=== PATIENT | female | born 1990 | race Caucasian/White ===

== ENCOUNTER 2023-10-03 11:48 | Emergency (ER) | payer SELFPAY ==
[2023-10-03 11:55] VITALS: BP 112/59; PULSE 89; TEMP 36.8; O2SAT 98; BMI 43.3
--- NOTE | 2023-10-03 13:04 | ED.GENADUL1 ---
HPI HPI - General Adult General Chief complaint: Dental/Oral Stated complaint: SEIZURE, MOUTH PAIN Time Seen by Provider: 10/03/23 11:52 Source: patient Mode of arrival: walk-in History of Present Illness HPI narrative: 33-year-old female to the emergency department with chief complaint of tongue laceration. Patient reports that 2 weeks ago she had a seizure. She was seen at [facility] for this. She had labs and imaging done. She has been referred to neurology. She has upcoming follow-up with neurology. She reports that she had a tongue laceration at that time and wants to make sure it is healing well. She reports she continues to have some mild discomfort on her tongue. Related Data Home Medications ?Medication ?Instructions ?Recorded ?Confirmed No Known Home Medications 10/03/23 10/03/23 Allergies Allergy/AdvReac Type Severity Reaction Status Date / Time No Known Drug Allergies Allergy Verified 10/03/23 11:54 Opioid HPI Opioid Management Most Recent Opioid Data: No Data to Display Review of Systems ROS Status of ROS 10 or more systems reviewed and unremarkable except as noted in history and below Exam Narrative Exam Narrative: VITALS: I have reviewed the triage vital signs. GENERAL: Well developed, well appearing adult in no acute distress. NEURO: Alert and oriented. Moves all extremities. Face is symmetric and expressive. Normal gait. EYES: PERRL. No scleral icterus or conjunctival injection. No discharge. HENT: Normocephalic, atraumatic. Hearing is grossly intact. Nares grossly patent and without discharge. Mucous membranes moist. Approximately 1.5 cm laceration anterior surface of the right lateral tongue. NECK: No JVD. Patient moves neck without restriction. CARDIO: Rhythm regular. Normal rate. No murmur, rub, or gallop. Pulses equal bilaterally in the upper and lower extremity. No lower extremity edema. PULM: Lungs clear to auscultation in all pandya. No wheezes, rales, or rhonchi. No conversational dyspnea. No splinting, stridor, or accessory muscle use. GI/: Abdomen is soft and non-tender. Normoactive bowel sounds. EXTREMITIES: Symmetric muscle bulk. No joint swelling. No clubbing, cyanosis, or deformity. SKIN: Warm and dry. Normal turgor. No rash or lesions appreciated. PSYCH: Mood, affect, and interaction is appropriate to the setting. Constitutional Vital Signs, click to edit/add: Last Vital Signs Temp 98.3 F 10/03/23 11:55 Pulse 89 10/03/23 11:55 Resp 16 10/03/23 11:55 BP 112/59 10/03/23 11:55 Pulse Ox 98 10/03/23 11:55 O2 Del Method Room Air 10/03/23 11:55 Course Vital Signs Vital signs: Vital Signs Temperature 98.3 F 10/03/23 11:55 Pulse Rate 89 10/03/23 11:55 Respiratory Rate 16 10/03/23 11:55 Blood Pressure 112/59 10/03/23 11:55 Pulse Oximetry 98 10/03/23 11:55 Oxygen Delivery Method Room Air 10/03/23 11:55 Temperature 98.3 F 10/03/23 11:55 Pulse Rate 89 10/03/23 11:55 Respiratory Rate 16 10/03/23 11:55 Blood Pressure 112/59 10/03/23 11:55 Pulse Oximetry 98 10/03/23 11:55 Oxygen Delivery Method Room Air 10/03/23 11:55 Medical Decision Making MDM Narrative Medical decision making narrative: 33-year-old female to the emergency department chief complaint of tongue laceration that occurred over a week ago. Vital stable, the patient is afebrile. She has ongoing outpatient workup for seizures. Tongue laceration is healing well. No evidence of infection or complication. No indication for intervention. Discussed with patient. She has follow-up with neurology. Discussed seizure precautions. Return precautions were discussed. All questions were answered. The patient was discharged home. Discharge Plan Discharge Stand Alone Forms: Portal Instructions Chief Complaint: Dental/Oral Clinical Impression: Laceration of tongue Patient Disposition: Home, Self-Care Time of Disposition Decision: 12:12 Mode of Transportation: Private Vehicle Prescriptions / Home Meds: No Action No Known Home Medications Print Language: Irish Instructions: Laceration Without Closure (ED) Additional Instructions: Call the office of your primary care doctor to arrange for follow-up within the above-stated timeframe. Your ED visit was focused on your acute issue and does not replace primary care. You should review your labs, imaging, and diagnoses from this ED visit with your primary care physician. There may be non-emergent/ incidental findings that need further evaluation. You should review your vital signs including blood pressure with your PCP. If you were prescribed medications you should discuss possible side-effects and drug interactions with your pharmacist. Call 911 or go to the nearest Emergency Department if you develop any new or worsening symptoms. Seek immediate medical attention if you develop: additional seizures, fever, headache, nausea, vomiting, weakness, numbness, tingling, loss of motion in your arms or legs, chest pain, shortness of breath, or any new or worsening symptoms. Do not do any activities where it would be dangerous if you had a seizure. These activities include, but are not limited to: driving, operating machinery, swimming alone, bathing alone, riding a bike, rock climbing, etc.... Use caution when you are around stairs or other situations where it would be dangerous if you had a seizure. You are responsible for reporting your seizure to the [facility]. You should not drive a vehicle until cleared to do so by your doctor or your neurologist. Losing consciousness behind the wheel can be deadly for you and other people on the road. Keep planned follow-up with neurology per [facility]'s discharge instructions. Referrals: HUI VALLE [Physician] - 1 week Discharge Date/Time: 10/03/23 12:28
== END 2023-10-03 12:28 | disposition home or self-care (01) ==
LOC: ER 12:28
PROVIDERS: Emergency Provider Student in an Organized Health Care Education/Training Program
DX: S01.512A Laceration without foreign body of oral cavity, initial encounter (principal); X58.XXXA Exposure to other specified factors, initial encounter
CPT/HCPCS: 99281

== ENCOUNTER 2023-12-25 17:43 | Emergency (ER) | payer OTHER, SELFPAY ==
[2023-12-25 17:47] VITALS: BP 126/74; PULSE 70; TEMP 36.8; O2SAT 98; BMI 43.3
--- NOTE | 2023-12-25 18:13 | ED.URI1 ---
HPI - URI/Sore Throat General Chief Complaint: Upper Respiratory Infection Stated Complaint: FLU LIKE SYMPTOMS Time Seen by Provider: 12/25/23 17:49 Source: patient History of Present Illness HPI Narrative: 33-year-old female presents emergency department with complaint of feeling over the past few days. Complains of feeling hot, cold, generalized bodyaches. She has had runny, congested nose, postnasal drip. States she has had chills, but does not know if she has had a fever, has not checked her temperature. Quality:?As above Severity:?Mild Timing:?As above, constant Context: Normal setting and activity? Modifying factors:?None Associated symptoms: None Related Data Home Medications ?Medication ?Instructions ?Recorded ?Confirmed aripiprazole 400 mg suspension, 400 mg IM .[id number] 12/25/23 12/25/23 extended rel.intramuscular syringe (Nicolásbrianda Ewelinaa) Allergies Allergy/AdvReac Type Severity Reaction Status Date / Time No Known Drug Allergies Allergy Verified 10/03/23 11:54 Review of Systems ROS Narrative Constitutional: + chills, fatigue. HENT: + nasal congestion. Denies ear pain, sore throat, diff swallowing, voice change Eyes: Denies discharge, eye redness Respiratory: Denies cough, shortness of breath Cardiovascular: Denies chest pain, palpitations MS: + myalgias PFSH PFSH Social History Little interest or pleasure in doing things: not at all Feeling down, depressed, or hopeless: not at all Exam Narrative Exam Narrative: Vital signs noted Nurses notes reviewed CONST:? Nontoxic, well appearing, well nourished, in no distress.? HENT: normocephalic, atraumatic.? Normal hearing.? Normal appearing ext ears, canals, TM's.? No nasal discharge.? Moist mucous membranes, no increased oropharyngeal erythema, edema, exudate.? No trismus, maintaining own secretions. EYES: No injection, discharge NECK: supple, no lymphadenopathy CV: normal rate, regular rhythm, no murmur RESP: normal effort, speaking in complete sentences. Lung sounds clear and equal bilat.? No wheezes, rales, rhonchi? NEURO: A&Ox3, steady gait, normal station SKIN: intact, warm, dry, no pallor PSYCHIATRIC: normal mood, affect Constitutional Vital Signs, click to edit/add: Last Vital Signs Temp 98.2 F 12/25/23 17:47 Pulse 70 12/25/23 17:47 Resp 20 12/25/23 17:47 BP 126/74 12/25/23 17:47 Pulse Ox 98 12/25/23 17:47 O2 Del Method Room Air 12/25/23 17:47 Course Vital Signs Vital signs: Vital Signs Temperature 98.2 F 12/25/23 17:47 Pulse Rate 70 12/25/23 17:47 Respiratory Rate 20 12/25/23 17:47 Blood Pressure 126/74 12/25/23 17:47 Pulse Oximetry 98 12/25/23 17:47 Oxygen Delivery Method Room Air 12/25/23 17:47 Temperature 98.2 F 12/25/23 17:47 Pulse Rate 70 12/25/23 17:47 Respiratory Rate 20 12/25/23 17:47 Blood Pressure 126/74 12/25/23 17:47 Pulse Oximetry 98 12/25/23 17:47 Oxygen Delivery Method Room Air 12/25/23 17:47 MDM - URI/Sore Throat MDM Narrative Medical decision making narrative: This is a pleasant 33-year-old female who presents to the emergency department with complaints of not feeling well, body aches, possible fevers, chills, cough runny nose, congestion over the past couple days. On arrival, afebrile, vital signs are stable. Exam, nontoxic, well-appearing patient in no distress. No remarkable findings on HEENT exam. No lymphadenopathy. Heart regular rate and rhythm. Lung sounds clear and equal bilaterally. COVID, influenza screens were negative Urinalysis revealed no acute findings test was negative Favor influenza-like illness Pneumonia less likely based on patient being afebrile, having clear lung sounds, not hypoxic COVID, influenza less likely based on lab testing She was offered a shot of Toradol, declined, states that she will treat self at home. Disposition ? The patient was discharged. Plan: Patient will be discharged to home. Condition at time of disposition: stable She was advised [id number], supportive treatment Advised to follow up with primary provider. Advised to return for any worsening and/or development of new, concerning signs or symptoms PLEASE NOTE: Portions of the medical record may have been produced using electronic bomb squad commander and may contain errors with respect to translation of words which may not have been identified prior to finalization of the chart. Medical Records Attestation: I reviewed the patient's medical records. Lab Data Attestation: I reviewed the patient's lab results. Labs: Lab Results 12/25/23 12/25/23 Range/Units 17:52 18:15 Urine Color Yellow (YELLOW) Urine Clarity Clear (CLEAR) Urine pH 6.5 (5.0-9.0) Ur Specific [place] 1.020 (1.005-1.025) Urine Protein Negative (NEG/TRACE) mg/dL Urine Glucose (UA) Negative (NEGATIVE) mg/dL Urine Ketones Negative (NEGATIVE) mg/dL Urine Occult Blood Moderate A (NEGATIVE) Urine Nitrite Negative (NEGATIVE) Urine Bilirubin Negative (NEGATIVE) Urine Urobilinogen 1.0 (0.2-1.0) EU/dL Ur Leukocyte Esterase Negative (NEGATIVE) Urine RBC 10-20 A (0-2) #/HPF Urine WBC None seen (NONE SEEN) #/HPF Ur Squamous Epith Cells Few A (NONE/RARE) #/LPF Urine Crystals None seen (None Seen) #/HPF Urine Bacteria Trace A (NONE SEEN) #/HPF Urine Casts None seen (NONE SEEN) #/LPF Urine Mucus Small A (NONE SEEN) Urine HCG, Qual Negative (NEGATIVE) Influenza Type A Ag Negative Influenza Type B Ag Negative SARS-CoV-2 Ag (CV2AG) Negative (NEGATIVE) Discharge Plan Discharge Chief Complaint: Upper Respiratory Infection Clinical Impression: Influenza-like illness, Odontalgia Patient Disposition: Home, Self-Care Time of Disposition Decision: 19:28 Condition: Good Mode of Transportation: Private Vehicle Prescriptions / Home Meds: No Action Abilify Maintena 400 mg suspension,extended rel syring 400 mg IM .[id number] Print Language: Northern Irish Instructions: Upper Respiratory Infection (ED), Toothache (ED) Referrals: Harris Wilson MD [Physician] - 1 week Physician,Non-Staff, [Primary Care Provider] - 1 week Discharge Date/Time: 12/25/23 19:44
[2023-12-25 18:29] LABS: Influenza Virus A Antigen Negative; Influenza Virus B Antigen Negative; Internal Control Within Normal Limits; SARS-CoV-2 Ag NEGATIVE (NEGATIVE)
[2023-12-25 19:12] LABS: Bilirubin Urine NEGATIVE (NEGATIVE); Blood Urine MODERATE (NEGATIVE); Clarity Urine CLEAR (CLEAR); Color Urine YELLOW (YELLOW); Glucose Urine UA NEGATIVE (NEGATIVE); Ketones Urine NEGATIVE (NEGATIVE); Leukocyte Esterase Urine NEGATIVE (NEGATIVE); Nitrite Urine NEGATIVE (NEGATIVE); Protein Urine NEGATIVE (NEG/TRACE); pH Urine 6.5 (5.0-9.0)
[2023-12-25 19:18] LABS: HCG Qualitative Urine* NEGATIVE (NEGATIVE); Internal Control Within Normal Limits
[2023-12-25 20:08] LABS: Cast Seen? NONE SEEN #/LPF (NONE SEEN); Crystals Seen? None Seen #/HPF (None Seen); Mucus Urine SMALL (NONE SEEN); Squamous Epithelial Cell Urine FEW #/LPF (NONE/RARE)
[2023-12-25 20:09] LABS: Bacteria Urine TRACE #/HPF (NONE SEEN); WBC Urine NONE SEEN #/HPF (NONE SEEN)
== END 2023-12-25 19:44 | disposition home or self-care (01) ==
PROVIDERS: Physician Assistant; Emergency Provider Emergency Medicine
DX: J11.1 Influenza due to unidentified influenza virus with other respiratory manifestations (principal); K08.89 Other specified disorders of teeth and supporting structures; Z20.822 Contact with and (suspected) exposure to COVID-19
CPT/HCPCS: 81001; 84703; 87804; 87811; 99285

== ENCOUNTER 2024-06-09 12:24 | Emergency (ER) | payer OTHER, SELFPAY ==
[2024-06-09 12:27] VITALS: BP 107/65; PULSE 78; TEMP 36.8; O2SAT 100; BMI 46.8
--- NOTE | 2024-06-09 12:54 | ED_ITS ---
HPI HPI - General Adult General Chief complaint: Extremity Injury, Lower Stated complaint: FALL Time Seen by Provider: 06/09/24 12:32 Source: patient Mode of arrival: walk-in Limitations: no limitations History of Present Illness HPI narrative: The patient mentioned that yesterday she tripped over a hole in the ground and twisted her right knee and started having pain in her right hip and groin area, the patient still able to walk with pain. She had no loss of consciousness no head injury no other concerns Related Data Home Medications ?Medication ?Instructions ?Recorded ?Confirmed aripiprazole 400 mg suspension, 400 mg IM .[id number] 12/25/23 12/25/23 extended rel.intramuscular syringe (Omid Ch) Previous Rx's ?Medication ?Instructions ?Recorded diclofenac sodium 75 mg 75 mg PO BID PRN pain #20 tabs 06/09/24 tablet,delayed release Allergies Allergy/AdvReac Type Severity Reaction Status Date / Time No Known Drug Allergies Allergy Verified 06/09/24 12:27 Opioid HPI Opioid Management Most Recent Opioid Data: No Data to Display Review of Systems ROS Status of ROS 10 or more systems reviewed and unremark able except as noted in history and below PFSH PFS Social History Little interest or pleasure in doing things: not at all Feeling down, depressed, or hopeless: not at all Exam Narrative Exam Narrative: Nurses notes and vital signs reviewed and patient is not hypoxic. General: Well-appearing and in no apparent distress. Skin: Warm, dry, no pallor noted. No rash. Musculoskeletal: normal ROM, no calf or popliteal tenderness, no lower extremity edema/swelling ,the patient have tenderness upon palpation of the right patellar area no ecchymosis seen no significant effusion and also tenderness in the right groin area Neurological: A&O x4. No cranial nerve dysfunction observed. Moves all extremities. Sensation intact. Psychiatric: Cooperative and interactive. Normal mood and affect. Constitutional Vital Signs, click to edit/add: Last Vital Signs Temp 98.2 F 06/09/24 12:27 Pulse 78 06/09/24 12:27 Resp 20 06/09/24 12:27 BP 107/65 06/09/24 12:27 Pulse Ox 100 06/09/24 12:27 O2 Del Method Room Air 06/09/24 12:27 Course Vital Signs Vital signs: Vital Signs Temperature 98.2 F 06/09/24 12:27 Pulse Rate 78 06/09/24 12:27 Respiratory Rate 20 06/09/24 12:27 Blood Pressure 107/65 06/09/24 12:27 Pulse Oximetry 100 06/09/24 12:27 Oxygen Delivery Method Room Air 06/09/24 12:27 Temperature 98.2 F 06/09/24 12:27 Pulse Rate 78 06/09/24 12:27 Respiratory Rate 20 06/09/24 12:27 Blood Pressure 107/65 06/09/24 12:27 Pulse Oximetry 100 06/09/24 12:27 Oxygen Delivery Method Room Air 06/09/24 12:27 Medical Decision Making MDM Narrative Medical decision making narrative: X-ray of the right knee as well as x-ray of the right hip showed no acute pathology Right now the patient had a knee immobilizer applied in addition to resting elevation and provided Toradol in the ER She will just continue ice treatment in addition to being referred to the orthopedic as outpatient Voltaren to go home with The patient is to follow up with primary care physician in next 2-3 days or to return to the emergency department should any of the signs or symptoms worsen or new symptoms develop. The patient agrees with the following Diagnosis and Treatment plan and the patient will be discharged home. Discharge Plan Discharge Chief Complaint: Extremity Injury, Lower Clinical Impression: Knee sprain, Hip sprain Patient Disposition: Home, Self-Care Time of Disposition Decision: 13:50 Condition: Good Prescriptions / Home Meds: New diclofenac sodium 75 mg tablet,delayed release (DR/EC) 75 mg PO BID PRN (Reason: pain) Qty: 20 0RF No Action Abilify Maintena 400 mg suspension,extended rel syring 400 mg IM .[id number] Print Language: Kyrgyz Instructions: Knee Sprain (ED), Hip Sprain (ED) Referrals: Physician,Non-Staff, [Primary Care Provider] - 1 week Zackary Reilly MD [Physician] - 1 week
[2024-06-09] MEDS: KETOROLAC TROMETHAMINE 60 MG/2 ML VIAL IM (13:33)
== END 2024-06-09 14:07 | disposition home or self-care (01) ==
PROVIDERS: Emergency Provider Emergency Medicine
DX: S73.101A Unspecified sprain of right hip, initial encounter (principal); S83.91XA Sprain of unspecified site of right knee, initial encounter; X50.1XXA Overexertion from prolonged static or awkward postures, initial encounter
CPT/HCPCS: 73502; 73562; 96372; 99284; J1885

== ENCOUNTER 2024-08-31 15:35 | Outpatient (OUT) | payer OTHER, SELFPAY ==
[2024-08-31 16:01] LABS: BOX Test Reference Lab unity; BOX Test Sent Out unity
[2024-08-31 16:07] LABS: Basophils Percent Auto 0.6 % (0.2-2.0); Eosinophils Absolute Auto 0.1 10^3/uL (0.0-0.7); Hematocrit 37.3 % (36.0-48.0); Hemoglobin 13.5 g/dL (12.0-16.0); Immature Granulocytes Abs Auto 0.02 10^3/uL (0.00-0.03); Immature Granulocytes Pct Auto 0.3 % (0.0-0.5); Lymphocytes Percent Auto 27.5 % (20.5-60.0); Mean Corpuscular HGB Conc 36.2 g/dL (29.9-35.2); Mean Corpuscular Hemoglobin 31.1 pg (26.7-34.0); Mean Corpuscular Volume 85.9 fL (81.0-99.0); Mean Platelet Volume 9.1 fL (9.5-13.5); Monocytes Absolute Auto 0.5 10^3/uL (0.3-0.8); Monocytes Percent Auto 6.9 % (1.7-12.0); Neutrophils Absolute Auto 4.5 10^3/uL (1.4-6.5); Neutrophils Percent Auto 62.7 % (43.0-75.0); Platelet Count 245 10^3/uL (150-450); Red Blood Count 4.34 10^6/uL (4.20-5.40); White Blood Count 7.1 10^3/uL (4.0-11.0)
[2024-08-31 17:01] LABS: Estimated Average Glucose 97 mg/dL
[2024-08-31 17:07] LABS: Amphetamine Screen Urine NEGATIVE (NEGATIVE); Barbiturates Screen Urine NEGATIVE (NEGATIVE); Benzodiazepines Screen Urine NEGATIVE (NEGATIVE); Buprenorphine Screen Urine POSITIVE (NEGATIVE); Cannabinoid Screen Urine POSITIVE (NEGATIVE); Cocaine Screen Urine POSITIVE (NEGATIVE); Methadone Screen Urine NEGATIVE (NEGATIVE); Methamphetamines Screen Urine NEGATIVE (NEGATIVE); Opiate Screen Urine NEGATIVE (NEGATIVE); Oxycodone Screen Urine NEGATIVE (NEGATIVE); Phencyclidine Screen Urine NEGATIVE (NEGATIVE); Tricyclic Antidepressant Urine NEGATIVE (NEGATIVE)
[2024-09-02 05:09] LABS: HIV Ab/p24 Ag Screen Non Reactive (Non Reactive)
[2024-09-02 06:09] LABS: HBsAg Screen Negative (Negative); HCV Ab Non Reactive (Non Reactive)
[2024-09-02 08:08] LABS: Rubella Antibodies, IgG 3.14 index (Immune >0.99)
[2024-09-02 13:10] LABS: Rapid Plasma Reagin, Quant Non Reactive titer (NonRea<1:1)
== END 2024-08-31 15:36 | disposition home or self-care (01) ==
PROVIDERS: PCP Nurse Practitioner; Visit Provider Obstetrics & Gynecology
DX: Z34.01 Encounter for supervision of normal first pregnancy, first trimester (principal); Z36.0 Encounter for antenatal screening for chromosomal anomalies; N92.6 Irregular menstruation, unspecified
CPT/HCPCS: 36415; 80299; 80307; 80349; 80353; 83036; 85025; 86592; 86762; 86803; 86850; 86900; 86901; 87086; 87340; 87389

== ENCOUNTER 2024-09-29 19:39 | Outpatient (REF) | payer OTHER, SELFPAY ==
--- OUTSIDE RECORDS SUMMARY | 2017-11-08 06:00 | XMS_ITS | Continuity of Care Document ---
Author Organization [employer] [facility] Address [address] [place] [address] Phone Care Team Providers Care Press Hand Name Role Phone Ramon Brasher MD Unavailable Unavailable Procedures Procedure Date OUTPATIENT CONSULTATION Advance Directives Directive Yes / No Effective Date File Name No Information Encounters Encounter Description Practice Location Reason(s) For Visit Diagnoses Date Provider Providers Copied on Encounter OUTPATIENT CONSULTATION [employer] [employer] [facility], [address], [place], [place], [id number], [place] tel:[phone] [facility] No Information Sameera Navarro. [address] [place] [address] [address], [place], [id number], [place]. tel:[phone] Referring Provider: Ramon Arreaga, [address] [place] [address] [address], [place], [address]. tel:[phone] Family History Family Member Type Diagnosis Age At Onset No Information Payers Payer name Insurance type Covered green party ID Authoriza fanny(s) On License Of [facility] CI [id number] Social History Type Description Quantity Date Captured Comments Sex Female Smoking Status No Information Chief Complaint And Reason For Visit No Information Reason For Referral Reason For Referral No Information History Of Present Illness Encounter Date Complaint History Of Prese nt Illness No Information Functional Status Date Functional Assessmen t No Information Instructions Date Instruction Additional Infor mation No Information Assessments Type Assessment Date No Information Patient Care Teams Name Effective Dates (start - stop) Status Members No Information
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
--- OUTSIDE RECORDS SUMMARY | 2024-01-14 10:30 | XMS_ITS ---
Author Organization [facility] vices Address [address] [place], [place] [id number] Care Team Providers Care Records Analysis Manager Name Role Phone Eunice Crooks Unavailable [phone] BalaDanette valverde Unavailable [phone] REASON FOR VISIT 1 month f/u Medications Medication SIG (Take, Route, Frequency, Duration) Notes Start Date End Date Status lamoTRIgine 25 MG 1 tablet Orally morning for 30 days Take 1 tab in AM days 1-14. Take 2 tabs in AM days 15-30 12/11/2023 Active Fluconazole 150 MG 1 tablet Orally Taken now. Then take a second tablet in 72 hours if sx have not resolved for 3 days 07/12/2022 Not-Taking levETIRAcetam 500 MG Oral for 30 Days Active Atomoxetine HCl 40 MG TAKE 1 CAPSULE BY MOUTH EVERY DAY IN THE MORNING for 30 Not-Taking Amoxicillin 875 MG 1 tablet Orally Twice a day for 10 days 07/12/2022 Not-Taking Prazosin HCl 2 MG 1 capsule at bedtime Orally bed time for 30 days Active hydrOXYzine Pamoate 50 MG 1 capsule at bedtime as needed Orally Once a day for 30 days As needed Active traZODone HCl 50 MG 1 tablet at bedtime as needed Orally Once a day for 30 days Active lamoTRIgine 100 MG 1 tablet Orally morning for 30 days Not-Taking ARIPiprazole 15 MG 1 tablet Orally BEDTIME for 14 days Active busPIRone HCl 15 MG 1 tablet Orally Twice a day for 30 days Take 1 tab upon awakening and 1 tab at 5-6 PM. Active Sertraline HCl 50 MG 1 tablet Orally morning for 30 days Active Aristada 1064 MG/3.9ML 3.9 mL Intramuscular Every 2 months for 60 days Next RODRIGUEZ due 02/04/24. Please deliver [facility] [address] [facility] [id number]. 08/06/2022 Active Social History Sex Assigned At : Social History Observation Description Sex Assigned At Female Encounters Encounter Location Date Provider Diagnosis [address] [place] [id number] 01/14/2024 Danette Arteaga Anxiety F41.9 ; Bipo lar 1 disorder F31.9 and Insomnia G47.00 Assessments Encounter Date Diagnosis (ICD Code) Assessment Notes Treatment Notes Treatment Clinical Notes Section Notes 01/14/2024 Anxiety (ICD-10 - F41.9) 01/14/2024 Bipolar 1 disorder (ICD-10 - F31.9) Restarted medications 09/19/21, 04/04/22. 12/16. 01/14/2024 Insomnia (ICD-10 - G47.00) Plan Of Treatment No Information Progress Notes * Alicia BARNES NDOB:08/1990 (34 yo F)Acc No.[id number]:01/14/2024 Patient: Claudia Alicia MARTÍNEZ N Provider: STORMY Womack :1990 A ge:33 Y S ex:Female Date:01/14/2024 Address:[address] [place] [address] , [id number] Subjective: * Chief Complaints: * 1 . 1 month f/u. * Medical History: * Medications: T aking Aristada 1064 MG/3.9ML Prefilled Syringe 3.9 mL Intramuscular Every 2 months , Notes to Pharmacist: Next RODRIGUEZ due 02/04/24. Please deliver to [facility] main [address] [place] [address]., Taking busPIRone HCl 15 MG Tablet 1 tablet Orally Twice a day , Notes to Pharmacist: Take 1 tab upon awakening and 1 tab at 5-6 PM., Taking Sertraline HCl 50 MG Tablet 1 tablet Orally morning , Taking Prazosin HCl 2 MG Capsule 1 capsule at bedtime Orally bed time , Taking traZODone HCl 50 MG Tablet 1 tablet at bedtime as needed Orally Once a day , Taking hydrOXYzine Pamoate 50 MG Capsule 1 capsule at bedtime as needed Orally Once a day As needed, Taking ARIPiprazole 15 MG Tablet 1 tablet Orally BEDTIME , Notes: 1/2 tab for 4 days then increase to full tab, Taking levETIRAcetam 500 MG Tablet Oral , Taking lamoTRIgine 25 MG Tablet 1 tablet Orally morning Take 1 tab in AM days 1-14. Take 2 tabs in AM days 15-30, Not-Taking/PRN lamoTRIgine 100 MG Tablet 1 tablet Orally morning , Not-Taking/PRN Atomoxetine HCl 40 MG Capsule TAKE 1 CAPSULE BY MOUTH EVERY DAY IN THE MORNING , Not-Taking/PRN Amoxicillin 875 MG Tablet 1 tablet Orally Twice a day , Not-Taking/PRN Fluconazole 150 MG Tablet 1 tablet Orally Taken now. Then take a second tablet in 72 hours if sx have not resolved Objective: * Vitals: Assessment: * Assessment: 1. A nxiety - F41.9 (Primary) 2 . B ipolar 1 disorder - F31.9 ?Notes :Restarted medications 09/19/21, 04/04/22. /. 3 . I nsomnia - G47.00 Plan: * Treatment: Care Plan: * Problems: * Billing Information: * Visit Code: * Procedure Codes: Care Plan Details* * Electronic signature of LAYNE Gaspar on 09/29/2024 at 10:29 AM EDT Sign off status: Pending * Provider: LAYNE Womack Date: Generated for Efe beckford/Rosy/Pj on: 0 09/29/2024 10:29 AM EDT
--- OUTSIDE RECORDS SUMMARY | 2024-09-29 10:30 | XMS_ITS | Encounter Summary ---
Author Organization [facility] Address [address] [place] [address] Care Team Providers Care Supervisor [employer] Name Role Phone Unavailable Primary Care Provider Unavailabl e Reason for Visit * Reason Comments Routine Visit Encounter Details Date Type Department Care Team (Latest Contact Info) Description 09/29/2024 10:30 AM EDT Routine [facility] [address] [place] [phone] Samantha Lira PA [address] [place] [address] Well woman exam with routine gynecological exam; Second trimester ([facility]); 13 weeks gestation of ([facility]); Screen for STD (sexually transmitted disease); [place]x [place] Social History Tobacco Use Types Packs/Day Years Used Date Smoking Tobacco: Never Assessed Estimated Date of Delivery Comme nts Yes 04/04/2025 Based on Ultraso und, [id number] Sex and Gender Information Value Date Recorded Sex Assigned at Female 11/27/2023 2:19 PM EDT Legal Sex Female 7:05 PM EDT Gender Identity Female 11/27/2023 2:19 PM EDT Sexual Orientation Not on file documented as of this encounter Last Filed Vital Signs Vital Sign Reading Time Taken Comments Blood Pressure 122/76 09/29/2024 11:20 AM EDT Pulse - - Temperature - - Respiratory Rate - - Oxygen Saturation - - Inhaled Oxygen Concentration - - Weight 129 kg (284 lb) 09/29/2024 11:20 AM EDT Height - - Body Mass Index 46.54 05/09/2018 12:00 PM EST documented in this encounter Progress Notes * GINNY Nicholas - 09/29/2024 10:30 AM EDT Reason for Appointment: Patient ID: Alicia Barnes is a 34 y.o. female who presents for Routine Visit Patient presents today for Return OB appointment. MEDICATIONS Current Outpatient Medications Medication Instructions ARIPiprazole (Abilify) 15 MG tablet 1 tablet Orally BEDTIME for 14 days ARIPiprazole (Abilify) 5 MG tablet TAKE 2 TABLETS BY MOUTH EVERY DAY IN THE EVENING Aristada 1064 MG/3.9ML injection INJECT INTRAMUSCULARLY EVERY TWO MONTHS atomoxetine (STRATTERA) 40 mg, Oral, Daily Brixadi 96 mg, Every 30 days MV-Min-Fe Fum-FA-DHA ( 1 PO) 1 tablet, Daily promethazine (PHENERGAN) 12.5 mg, Oral, Every 6 hours PRN, Take 1 tablet by mouth every 6 hours as needed for nausea. 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 Bilateral carpal tunnel syndrome 11/27/2023 Resolved Ambulatory Problems Diagnosis Date Noted No Resolved Ambulatory Problems Past Medical History: Diagnosis Date Anxiety Bipolar 1 disorder (HCC) Bleeding disorder Depression Fibromyalgia History of Raynaud's syndrome Neurocardiogenic syncope HISTORY PAST MEDICAL HISTORY SOCIAL HISTORY Past Medical History: Diagnosis Date Anxiety Bipolar 1 disorder (HCC) Bleeding disorder Depression Fibromyalgia History of Raynaud's syndrome Neurocardiogenic syncope Social History Tobacco Use Smoking status: Not on file Smokeless tobacco: Not on file Substance Use Topics Alcohol use: Not on file Drug use: Not on file FAMILY HISTORY Family History Problem Relation Name Age of Onset Heart disease Mother Mental illness Mother Osteoporosis Mother Diabetes Brother Hypertension Brother Heart disease Mother's Sister Heart disease Maternal Grandmother SURGICAL HISTORY Past Surgical History: Procedure Laterality Date GALLBLADDER UMBILICAL HERNIA REPAIR mesh REVIEW OF SYSTEMS Review of Systems: Review of Systems All other systems reviewed and are negative. OBJECTIVE Objective: Physical Exam Constitutional: Appearance: Normal appearance. She is well-developed. Genitourinary: Vulva normal. Cardiovascular: Rate and Rhythm: Normal rate and regular rhythm. Pulmonary: Effort: Pulmonary effort is normal. Breath sounds: Normal breath sounds. Abdominal: General: Bowel sounds are normal. There is no distension. Palpations: Abdomen is soft. Tenderness: There is no abdominal tenderness. There is no guarding or rebound. Musculoskeletal: General: No swelling. Normal range of motion. Right lower leg: No edema. Left lower leg: No edema. Neurological: Mental Status: She is alert and oriented to person, place, and time. Skin: General: Skin is warm and dry. Psychiatric: Mood and Affect: Mood normal. Behavior: Behavior normal. Vitals and nursing note reviewed. Exam conducted with a sales mgr present. Vitals: Estimated body mass index is 46.18 kg/m?? as calculated from the following: Height as of 05/09/18: 5' 5.5 . Weight as of 08/31/24: 281 lb 12.8 oz. BP: No LMP recorded. Patient is . ASSESSMENT & PLAN ICD-10-CM 1. Well woman exam with routine gynecological exam Z01.419 Pap Smear HPV DNA probe, amplified 2. Second trimester ([facility]) Z34.92 POCT urinalysis dipstick manually resulted 3. 13 weeks gestation of ([facility]) Z3A.13 4. Screen for STD (sexually transmitted disease) Z11.3 SURESWAB(R) ADVANCED VAGINITIS PLUS, TMA CHLAMYDIA TRACHOMATIS (GENITO/STI) Neisseria gonorrhea DNA probe, direct 5. Hx of opioid abuse [place] F11.11 Return OB/Annual Exam: Patient presents today for an annual exam/routine obstetrics appointment. Patient is currently 13w2d . Patient is doing well and states she has no complaints. Pap/cultures was obtained without difficulty. Patient was advised due to her history of being an opioid abuser she will be referred to [facility]. PVU. Referral will be sent and pt is aware that [facility] will be contacting her over the phone toschedule OB visit. PVU. Pt stated she is no longer on the Brixadi injection since last month however, is having nausea and vomiting due to withdrawals. Pt states Shammo from [facility] is aware of her no longer needing injections due to . Orders Placed This Encounter Procedures HPV DNA probe, amplified CHLAMYDIA TRACHOMATIS (GENITO/STI) Neisseria gonorrhea DNA probe, direct POCT urinalysis dipstick manually resulted Follow Up: Patient is to return to our office in 4 weeks for routine OB appointment Documented by Katie Loo MA on behalf of: Jyoti Nicholas documented in this encounter Plan of Treatment Upcoming Encounters Date Type Department Care Team (Late st Contact Info) Description 10/28/2024 2:20 PM EDT Routine [facility] [address] [address] Savage Valdez, DO [address] [place] [address] Scheduled Orders Name Type Priority Associated Diagnoses Orde r Schedule Pap Smear Pathology and Cytology Routine Well woman exam with routine gynecological exam Ordered: 09/29/2024 HPV DNA probe, amplified Microbiology Routine Well woman exam with routine gynecological exam Ordered: 09/29/2024 SURESWAB(R) ADVANCED VAGINITIS PLUS, TMA Pathology and Cytology Routine Screen for STD (sexually transmitted disease) Ordered: 09/29/2024 CHLAMYDIA TRACHOMATIS (GENITO/STI) Lab Routine Screen for STD (sexually transmitted disease) Ordered: 09/29/2024 Neisseria gonorrhea DNA probe, direct Lab Routine Screen for STD (sexually transmitted disease) Ordered: 09/29/2024 documented as of this encounter Procedures Procedure Name Priority Date/Time Associated Diagnosis Comments POCT URINALYSIS DIPSTICK Routine 09/29/2024 11:11 AM EDT Second trimester ([facility]) documented in this encounter Results * (ABNORMAL) POCT urinalysis dipstick manually resulted (09/29/2024 11:11 AM EDT) Color, UA Yellow Clarity, UA Clear Glucose, UA Negative Negative - 2000(110) ++++ mg/dL Bilirubin, UA Negative Negative - 4(70) +++ mg/dL Ketones, UA Negative Negative - 160(16) ++++ mg/dL Spec Grav, UA 1.015 1 - 1.03 Blood, UA Positive Negative - 50 Oni/mcL Comment:moderate pH, UA 7.0 5 - 9 Protein, UA Positive Negative - 2000(20) ++++ mg/dL Comment:30 Urobilinogen, UA 0.2 0.2 - 12 mg/dL Leukocytes, UA Negative Negative - 500+++ Ken[place]/mcL Nitrite, UA Negative Negative - Positive Urine 09/29/2024 11:1 1 AM EDT Samantha GROSS POINT OF CARE TEST ENTER/EDIT OR DERABLES Final Result documented in this encounter Visit Diagnoses Diagnosis Well woman exam with routine gynecological exam Routine gynecological examination Second trimester ([facility]) state, incidental 13 weeks gestation of ([facility]) Screen for STD (sexually transmitted disease) Screening examination for venereal disease Hx of opioid abuse [place] documented in this encounter
--- OUTSIDE RECORDS SUMMARY | 2024-09-29 19:42 | XMS_ITS | Encounter Summary ---
Author Organization [facility] Address [address] [place] [address] Care Team Providers Care Food And Beverage Assistant Name Role Phone Unavailable Primary Care Provider Unavailabl e Encounter Details Date Type Department Care Team (Late st Contact Info) Description 09/16/2024 Telephone [facility] [address] [place] [id number] Katie Loo MA [address] [place] [address] Social History Tobacco Use Types Packs/Day Years [...] on file documented as of this encounter Miscellaneous Notes * Telephone Encounter - Katie Loo MA - 09/16/2024 4:19 PM EDT Pt called and wanted to know what Dr. Valdez is going to do about her being on Brixadil due to misusing opiates. Pt is currently and she is worried what it will do to her baby and what it is going to do to her w/withdraws. Pt states she was supposed to have gotten her injection on 09/13/2024 and did not go and she is feeling nauseas. I advised pt Dr. Valdez does not prescribe that medication. Pt states she missed her last appt [email or web address] for her injection. I advised pt that Dr. Valdez wants her to go back to the office who prescribes the injection and they will have to advise you if you have to continue w/medication and at what dosage because he not over Drug/Detox. Pt stated she is going to try and reach out to [facility] again to schedule an appt. I advised pt if I have any other information I will reach out. I tried to call patient back to notify her that the nurse she spoke w/at intake tried to reach out to Ezio Clark and left message to call our office back. I wanted to let patient know I did make contact w/Ezio Clark who is over Detox outpatient treatment and that he will be taking over her care. However, pt does not have VM set up and could not leave a message. Ezio Clark did call our office and I spoke w/him. He advised me that he is taking over her care/treatment and that he will be having her in an outpatient/partial hospital stay in [facility]. Ezio is taking over getting patients Brixadil injections on a weekly basis w/a dosage of 25 mg. Mary Annfern s tated he has already spoke w/the patient and has her set up for her stay at the facility. Our fax number was given to Ezio so he can fax our office his office notes to keep Dr. Valdez in the loop. documented in this encounter Plan of Treatment Upcoming Encounters Date Type Department Care Team (Late st Contact Info) Description 10/28/2024 2:20 PM EDT Routine [facility] [address] [place] [phone] Savage Valdez, DO [address] [place] [address] documented as of this encounter Visit Diagnoses Not on filedocumented in this encounter
--- OUTSIDE RECORDS SUMMARY | 2024-09-29 19:42 | XMS_ITS | Clinical Summary ---
Author Organization [facility] Address [address] [place] [address] Care Team Providers Care Sock Drier Name Role Phone Unavailable Primary Care Provider Unavailabl e Allergies Active Allergy Reactions Criticality Noted Date Comments Amoxicillin Rash Low 09/29/2024 Cephalexin 11/18/2019 Other Reaction(s): Unknown Pt states she has had multiple symptoms since taking this, feels like she is on fire, feels like she is going to pass out and it caused a yeast infection Quetiapine 09/29/2024 Other Reaction(s): Unknown Topiramate 09/29/2024 Other Reaction(s): Unknown Medications Brixadi 96 MG/0.27ML solution prefilled syringe Inject 96 mg as directed every 30 (thirty) days 025 Active MV-Min-Fe Fum-FA-DHA ( 1 PO) Take 1 tablet by mouth Daily Active promethazine (Phenergan) 12.5 MG tabletIndication s:9 weeks gestation of ([facility]),Nausea Take 1 tablet (12.5 mg) by mouth every 6 (six) hours if needed for nausea or vomiting for up to 30 doses Take 1 tablet by mouth every 6 hours as needed for nausea. 30 tablet 2 025 Active ARIPiprazole (Abilify) 15 MG tablet 1 tablet Orally BEDTIME for 14 days Active ARIPiprazole (Abilify) 5 MG tablet TAKE 2 TABLETS BY MOUTH EVERY DAY IN THE EVENING 025 Active Aristada 1064 MG/3.9ML injection INJECT INTRAMUSCULARLY EVERY TWO MONTHS 025 Active atomoxetine (Strattera) 40 MG capsule Take 40 mg by mouth Daily Active ondansetron ODT (Zofran-ODT) 4 MG disintegrating tabletIndication s:Nausea Take 1 tablet (4 mg) by mouth every 6 (six) hours if needed for nausea or vomiting 30 tablet 2 025 2024 citalopram (CeleXA) 10 MG tabletIndication s:Anxiety, generalized Take 1 tablet (10 mg) by mouth Daily 30 tablet 11 025 2024 Discontinued Active Problems Problem Noted Date Diagnosed Date Hx of opioid abuse 09/29/2024 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 Bilateral carpal tunnel syndrome 11/27/2023 Estimated Date of Delivery Comme nts Yes 04/04/2025 Based on Ultraso und, FHR-122 Encounters Date Type Department Care Team Description 09/29/2024 10:30 AM EDT Routine [facility] [address] [place] [address] Samantha Lira PA Well woman exam with routine gynecological exam; Second trimester ([facility]); 13 weeks gestation of ([facility]); Screen for STD (sexually transmitted disease); Hx of opioid abuse [place] 09/29/2024 Bamboo flowsheet [facility] [address] [place] [address] Samantha Lira PA 09/22/[address] [facility] [address] [place] [address] Savage Valdez, 09/16/[address] [address] [place] [address] Katie Loo MA 09/11/2024 Abstract [facility] [address] [place] [address] Savage Valdez, 09/07/2024 Abstract [facility] [address] [place] [address] Savage Valdez, DO 09/07/2024 Abstract [facility] OB [address] [place] [address] Savage Valdez, DO 08/31/2024 2:10 PM EDT Routine [facility] OB [address] [place] [address] Savage Valdez, DO 9 weeks gestation of ([facility]); First trimester ([facility]); Nausea 08/31/2024 Clinisync Result Encounter [facility] External Department Unsolicited Savage Valdez, DO 08/31/2024 Bamboo flowsheet [facility] OB [address] [place] [address] Savage Valdez, DO 08/26/2024 Abstract [facility] OB [address] [place] [address] Savage Valdez, DO 08/26/2024 Telephone [facility] OB [address] [place] [address] Savage Valdez, DO 08/14/2024 Abstract [facility] OB [address] [place] [address] Savage Valdez, 08/13/2024 1:30 PM EDT Initial [facility] OB [address] [place] [address] GA: 6w4d 08/13/2024 1:00 PM EDT Ancillary Procedure [facility] OB [address] [place] [address] Missed menses 08/13/2024 Abstract [facility] OB [address] [place] [address] Savage Valdez, DO 08/13/2024 Abstract [facility] OB [address] [place] [address] Savage Valdez, DO from Last 3 Months Family History Medical History Relation Name Comments Diabetes Brother Hypertension Brother Heart disease Maternal Grandmother Heart disease Mother Mental illness Mother Osteoporosis Mother Heart disease Mother's Sister Relation Name Status Comments Brother Maternal Grandmother Mother Mother's Sister Social History Tobacco Use Types Packs/Day Years Used Date Smoking Tobacco: Never Assessed Estimated Date of Delivery Comme nts Yes 04/04/2025 Based on Ultraso und, FHR-122 Sex and Gender Information Value Date Recorded Sex Assigned at Female 11/27/2023 2:19 PM EDT Legal Sex Female 7:05 PM EDT Gender Identity Female 11/27/2023 2:19 PM EDT Sexual Orientation Not on file Last Filed Vital Signs Vital Sign Reading Time Taken Comments Blood Pressure 122/76 09/29/2024 11:20 AM EDT Pulse - - Temperature - - Respiratory Rate - - Oxygen Saturation - - Inhaled Oxygen Concentration - - Weight 129 kg (284 lb) 09/29/2024 11:20 AM EDT Height 166.4 cm (5' 5.5 ) 05/09/2018 12:00 PM ES T Body Mass Index 46.54 05/09/2018 12:00 PM EST Plan of Treatment Upcoming Encounters Date Type Department Care Team (Late st Contact Info) Description 10/28/2024 2:20 PM EDT Routine [facility] OB [address] [place] [address] Savage Valdez, DO [address] [facility] [place] [address] Procedures Procedure Name Priority Date/Time Associated Diagnosis Comments POCT URINALYSIS DIPSTICK Routine 09/29/2024 11:11 AM EDT Second trimester ([facility]) HBSAG SCREEN Routine 08/31/2024 3:55 PM EDT RAPID PLASMA REAGIN, QUANT Routine 08/31/2024 3:55 PM EDT HCV ANTIBODY RFX TO QUANT PCR Routine 08/31/2024 3:55 PM EDT ALL RUBELLA IGG AB Routine 08/31/2024 3: 55 PM EDT HIV AB/P24 AG WITH REFLEX Routine 08/31/2024 3:55 PM EDT ALL TYPE AND SCREEN Routine 08/31/2024 3 :55 PM EDT MLR HEMOGLOBIN A1C Routine 08/31/2024 3: 55 PM EDT ALL CBC WITH AUTO DIFF Routine 3:55 PM EDT BOX TEST Routine 08/31/2024 3:55 PM EDT BUPRENORPHINE CONFIRM, URINE Routine 08/31/2024 3:43 PM EDT CANNABINOID CONF, MS, UR Routine 08/31/2024 3:43 PM EDT ALL MISCELLANEOUS TEST Routine 3:43 PM EDT TBH DRUG SCREEN RAPID (URINE) Routine 08/31/2024 3:43 PM EDT POCT URINALYSIS DIPSTICK Routine 08/31/2024 2:49 PM EDT 9 weeks gestation of ([facility]) First trimester ([facility]) POCT URINALYSIS DIPSTICK Routine 08/13/2024 1:48 PM EDT Missed menses POCT , URINE Routine 08/13/2024 1:48 PM EDT Missed menses US OB TRANSVAGINAL Routine 08/13/2024 1: 32 PM EDT Missed menses from Last 3 Months Results * (ABNORMAL) POCT urinalysis dipstick manually resulted (09/29/2024 11:11 AM EDT) Only the most recent of3 resultswithin the time period is included. Color, UA Yellow Clarity, UA Clear Glucose, [...] CARE TEST ENTER/EDIT OR DERABLES Final Result * BOX TEST (08/31/2024 3:55 PM EDT) Pathologist [facility] BOX TEST SENT OUT [facility] BOX1 [facility] BOX2 08/31/24 [facility] 08/31/2024 3:55 PM EDT 08/31/2024 3:59 PM EDT Narrative [facility]IN[facility] - 08/31/2024 4:01 PM EDT G[facility] BOX IdeaPainto DO LAB BLOOD ORDERABLES Final Resul t [facility] * HBSAG SCREEN (08/31/2024 3:55 PM EDT) HBSAG SCREEN Negative Negative [facility] Comment: Performed at: [facility] Lab[address] [id number] Liquid Center Assembler: Leodan Tsai PhD, Phone: [phone] 08/31/2024 3:55 PM EDT 08/31/2024 3:59 PM EDT Narrative CLIN[facility] - 09/02/2024 1:10 PM EDT IdeaPainto DO LAB BLOOD ORDERABLES Final Resul t Performing Organization Address [facility]/ZIP Co de Phone Number [facility] * RAPID PLASMA REAGIN, QUANT (08/31/2024 3:55 PM EDT) Pathologist [facility] RAPID PLASMA REAGIN, QUANT Non Reactive NonRea<1: 1 titer [facility] Comment: Please Note: This test does not meet current guidelines for screening and diagnosis of syphilis. This test is intended for following treatment response in patients being treated for syphilis infection. To screen for syphilis infection, a reflex cascade that includes both RPR and a treponema-specific assay should be utilized, such as Treponema pallidum (Syphilis) Screening Bron[place] (619067) or Rapid Plasma Reagin (RPR) Test With Reflex to Quantitative RPR and Confirmatory Treponema pallidum Antibodies ([id number]). Performed at: [facility] [id number] Liquid Center Assembler: Leodan Tsai PhD, Phone: [phone] 08/31/2024 3:55 PM EDT 08/31/2024 3:59 PM EDT Narrative [facility] - 09/02/2024 1:10 PM EDT Primary Data LAB BLOOD ORDERABLES Final Resul t Performing Organization Address [facility] Co de Phone Number [facility] * HIV AB/P24 AG WITH REFLEX (08/31/2024 3:55 PM EDT) [facility] HIV AB/P24 AG SCREEN Non Reactive Non Reactive [facility] Comment: HIV-1/HIV-2 antibodies and HIV-1 p24 antigen were NOT detected. There is no laboratory evidence of HIV infection. HIV Negative Performed at: [facility] [id number] Liquid Center Assembler: Leodan Tsai PhD, Phone: [phone] 08/31/2024 3:55 PM EDT 08/31/2024 3:59 PM EDT Narrative CLIN[facility] - 09/02/2024 5:09 AM EDT IdeaPainto DO LAB BLOOD ORDERABLES Final Resul t Performing Organization Address [facility]/ZIP Co de Phone Number [facility] * HCV ANTIBODY RFX TO QUANT PCR (08/31/2024 3:55 PM EDT) [facility] HCV AB Non Reactive Non Reactive [facility] INTERPRETATION: Comment . [facility] Comment: Not infected with HCV unless early or acute infection is suspected (which may be delayed in an immunocompromised individual), or other evidence exists to indicate HCV infection. Performed at: [facility] [address] [id number] Liquid Center Assembler: Leodan Tsai PhD, Phone: [phone] 08/31/2024 3:55 PM EDT 08/31/2024 3:59 PM EDT Narrative CLINISYNC - 09/02/2024 8:08 AM EDT [facility] LAB BLOOD ORDERABLES Final Resul t Performing Organization Address [facility] Co de Phone Number [facility] * MLR HEMOGLOBIN A1C (08/31/2024 3:55 PM EDT) [facility] GLYCOHEMOGLOBIN A1C 5.0 4.5 - 6.2 % [facility] Comment: ADA RECOMMENDED LIMIT 4.0 - 6.0 ADA THERAPEUTIC TARGET < 7.0 ACTION SUGGESTED > 7.0 ESTIMATED AVERAGE GLUCOSE 97 mg/dL [facility] 08/31/2024 3:55 PM EDT 08/31/2024 3:59 PM EDT Narrative CLINISYNC - 08/31/2024 5:03 PM EDT IdeaPainto DO CLINISYNC Final Result Performing Organization Address [facility] Co de Phone Number [facility] * ALL TYPE AND SCREEN (08/31/2024 3:55 PM EDT) [facility] BLOOD TYPE A Positive [facility] ANTIBODY SCREEN NEGATIVE TB 08/31/2024 3:55 PM EDT 08/31/2024 3:59 PM EDT Narrative CLINISY[facility] - 08/31/2024 6:01 PM EDT [facility] , Savage Braswello DO CLINISYNC Final Result [facility] * ALL RUBELLA IGG AB (08/31/2024 3:55 PM EDT) [facility] RUBELLA ANTIBODIES, IGG 3.14 Immune >0.99 index [facility] Comment: Non-immune <0.90 Equivocal 0.90 - 0.99 Immune >0.99 Performed at: - [address] [id number] Liquid Center Assembler: Leodan Tsai PhD, Phone: [phone] 08/31/2024 3:55 PM EDT 08/31/2024 3:59 PM EDT Narrative CLINISYNC - 09/02/2024 8:08 AM EDT Savage José Miguel DO CLINISYNC Final Result [facility] * (ABNORMAL) ALL CBC WITH AUTO DIFF (08/31/2024 3:55 PM EDT) [facility] WBC 7.1 4.0 - 11.0 10 3/uL TBH TB RBC 4.34 4.20 - 5.40 10 6/uL TBH TB HGB 13.5 12.0 - 16.0 g/dL TB TB HCT 37.3 36.0 - 48.0 % TB TB MCV 85.9 81.0 - 99.0 fL TB TB MCH 31.1 26.7 - 34.0 pg TBH TB MCHC 36.2(H) 29.9 - 35.2 g/dL TB TB RDW 12.0 11.0 - 15.0 % TBH TBH PLT 245 150 - 450 10 3/uL TB TB MPV 9.1(L) 9.5 - 13.5 fL TB NEUTROPHILS PERCENT AUTO 62.7 43.0 - 75.0 % TBH LYMPHOCYTES PERCENT AUTO 27.5 20.5 - 60.0 % TBH MONOCYTES PERCENT AUTO 6.9 1.7 - 12.0 % TBH TBH EO % 2.0 0.9 - 7.0 % TBH BASOPHILS PERCENT AUTO 0.6 0.2 - 2.0 % TBH IMMATURE GRANULOCYTES PCT AUTO 0.3 0.0 - 0.5 % TBH NEUTROPHILS ABSOLUTE AUTO 4.5 1.4 - 6.5 10 3/uL TBH LYMPHOCYTES ABSOLUTE AUTO 2.0 1.2 - 3.8 10 3/uL TBH MONOCYTES ABSOLUTE AUTO 0.5 0.3 - 0.8 10 3/uL TBH TBH EO # 0.1 0.0 - 0.7 10 3/uL TBH BASOPHILS ABSOLUTE AUTO 0.0 0.0 - 0.1 10 3/uL TBH IMMATURE GRANULOCYTES ABS AUTO 0.02 0.00 - 0.03 10 3/uL TBH 08/31/2024 3:55 PM EDT 08/31/2024 3:59 PM EDT Narrative CLINISYNC - 08/31/2024 4:23 PM EDT us Savage José Miguel DO CLINISYNC Final Result [facility] * (ABNORMAL) BUPRENORPHINE CONFIRM, URINE (08/31/2024 3:43 PM EDT) BUPRENORPHINE Positive( A) . TBH BUPRENORPHINE CONF, MS, UR 277 Cutoff=10 ng/mL TBH NORBUPRENORPHINE Positive( A) . TBH NORBUPRENORPHINE CONF, MS,UR 343 Cutoff=10 ng/mL TBH 08/31/2024 3:43 PM EDT 09/01/2024 7:48 AM EDT Narrative CLINISYNC - 09/08/2024 8:09 AM EDT Savage José Miguel DO LAB BLOOD ORDERABLES Final Resul t [facility] * (ABNORMAL) TB DRUG SCREEN RAPID (URINE) (08/31/2024 3:43 PM EDT) CANNABINOID SCREEN URINE POSITIVE(A) NEGATIVE TBH PHENCYCLIDINE SCREEN URINE NEGATIVE NEGATIVE TBH COCAINE SCREEN URINE POSITIVE(A) NEGATIVE TBH METHAMPHETAMINES SCREEN URINE NEGATIVE NEGATIVE TBH OPIATE SCREEN URINE NEGATIVE NEGATIVE TBH AMPHETAMINE SCREEN URINE NEGATIVE NEGATIVE TBH BENZODIAZEPINES SCREEN URINE NEGATIVE NEGATIVE TBH TRICYCLIC ANTIDEPRESSANT URINE NEGATIVE NEGATIVE TBH METHADONE SCREEN URINE NEGATIVE NEGATIVE TBH BARBITURATES SCREEN URINE NEGATIVE NEGATIVE TBH OXYCODONE SCREEN URINE NEGATIVE NEGATIVE TBH BUPRENORPHINE SCREEN URINE POSITIVE(A) NEGATIVE TBH Comment: DRUG CLASS TEST SYSTEM CUT-OFF CONCENTRATIONS ARE FOLLOWS: AMP (Amphetamine): 500 ng/mL BAR (Barbiturates): 200 ng/mL BZO (Benzodiazepines): 150 ng/mL BUP (Buprenorphine): 10 ng/mL DARWIN (Cocaine): 150 ng/mL mAMP (Methamphetamine): 500 ng/mL MTD (Methadone): 200 ng/mL OPI (Opiates): 100 ng/mL OXY (Oxycodone): 100 ng/mL PCP (Phencyclidine): 25 ng/mL THC (Cannabinoids): 50 ng/mL TCA (Trycyclic Antidepressants): 300 ng/mL 08/31/2024 3:43 PM EDT 08/31/2024 3:48 PM EDT Narrative CLINISYNC - 08/31/2024 5:08 PM EDT Savage José Miguel DO CLINISYNC Final Result [facility] * (ABNORMAL) CANNABINOID CONF, MS, UR (08/31/2024 3:43 PM EDT) CANNABINOID Positive(A ) . TB CARBOXY THC CONF, MS, UR >750 Cutoff=10 ng/mL TB Comment: Performed at: [facility] [address] [place], [place] [id number] Liquid Center Assembler: Rashaun Navarrete PhD, Phone: [phone] 08/31/2024 3:43 PM EDT 09/01/2024 7:48 AM EDT Narrative CLINISYNC - 09/08/2024 8:09 AM EDT Savage José Miguel DO LAB BLOOD ORDERABLES Final Resul t Performing Organization Address [facility]/ZIP Co de Phone Number [facility] * ALL MISCELLANEOUS TEST (08/31/2024 3:43 PM EDT) MISCELLANEOUS TEST COMMENT . [facility] Comment: Test Ordered: [id number] Cocaine Conf, MS, UR Cocaine + Metabolite Positive [A ] UI Reference Range: . Benzoylecgonine Conf, MS, UR 840 ng/mL UI Reference Range: [id number] Please Note: Comment UI Reference Range: . Drug test results should be interpreted in the context of clinical information. Patient metabolic variables, specific drug chemistry, and specimen characteristics can affect test outcome. Technical consultation is available if a test result is inconsistent with an expected outcome. Email: [email or web address] Performed at: [facility] [id number] Liquid Center Assembler: Rashaun Navarrete PhD, Phone: [phone] Performed at: [facility] [id number] Liquid Center Assembler: Leodan Tsai PhD, Phone: [phone] 08/31/2024 3:43 PM EDT 09/01/2024 7:48 AM EDT Narrative [facility] - 09/07/2024 1:08 PM EDT [id number] Cocaine Metabolite Confirmation Savage Braswello DO CLINISYNC Final Result Performing Organization Address [facility]/ZIP Co de Phone Number [facility] * (ABNORMAL) POCT , urine manually resulted (08/13/2024 1:48 PM EDT) Preg Test, Ur Positive Negative Urine 08/13/2024 1:48 PM EDT Savage José Miguel DO POINT OF CARE TEST ENTER/EDIT OR DERABLES Final Result * US OB transvaginal (08/13/2024 1:32 PM EDT) Anatomical Region Laterality Modality Body Ultrasound 08/14/2024 12:1 9 PM EDT Narrative 08/14/2024 12:19 PM EDT EXAM: US OB TRANSVAGINAL HISTORY: Dating. COMPARISON: None available. TECHNIQUE: Two-dimensional transvaginal grayscale ultrasound imaging of the pelvis was performed. Color Doppler evaluation of the ovaries was also performed. FINDINGS: The uterus demonstrates a normal homogeneous echotexture. The cervix measures 3.8 cm in length and the cervical os is closed. There are multiple nabothian cysts with the cervix. The right ovary measures 3.8 x 1.8 x 2.6 cm and demonstrates a normal echotexture. There is normal color Doppler flow. There is a dominant follicle visualized. The left ovary measures 2.8 x 2.5 x 2.6 cm and demonstrates a normal echotexture. There is normal color Doppler flow. No fluid is present within the cul-de-sac. There is a single, live intrauterine gestation identified with a heart rate of 122 beats per minute and a crown-rump length measurement of 0.7 cm, correlating to a gestational age of 6 weeks 4 days (+/- 4 days). There is no subchorionic hemorrhage visualized. A yolk sac is visualized. IMPRESSION: 1. Single, live intrauterine gestation with today's ultrasound measurements correlating to a gestational age of 6 weeks 4 days (+/- 4 days). EDNA by today's ultrasound is 04/04/2025. 2. Normal color Doppler evaluation of the bilateral ovaries. Interpreted by: Electronically signed by LINDA LÓPEZ II, MD, PHD at 14-Aug-2024 12:18:11 PM [facility] Procedure Note Linda López MD - 08/14/2024 EXAM: US OB TRANSVAGINAL HISTORY: Dating. COMPARISON: None available. TECHNIQUE: Two-dimensional transvaginal grayscale ultrasound imaging ofthe pelvis was performed. Color Doppler evaluation of the ovaries was alsoperformed. FINDINGS: The uterus demonstrates a normal homogeneous echotexture. The cervixmeasures 3.8 cm in length and the cervical os is closed. There aremultiple nabothian cysts with the cervix. The right ovary measures 3.8 x 1.8 x 2.6 cm and demonstrates a normalechotexture. There is normal color Doppler flow. There is a dominantfollicle visualized. The left ovary measures 2.8 x 2.5 x 2.6 cm and demonstrates a normalechotexture. There is normal color Doppler flow. No fluid is present within the cul-de-sac. There is a single, live intrauterine gestation identified with a fetalheart rate of 122 beats per minute and a crown-rump length measurement of0.7 cm, correlating to a gestational age of 6 weeks 4 days (+/- 4 days).There is no subchorionic hemorrhage visualized. A yolk sac isvisualized. IMPRESSION: 1. Single, live intrauterine gestation with today's ultrasoundmeasurements correlating to a gestational age of 6 weeks 4 days (+/- 4days). EDNA by today's ultrasound is 04/04/2025. 2. Normal color Doppler evaluation of the bilateral ovaries. Interpreted by: Electronically signed by LINDA LÓPEZ II, MD, PHD [id number] 12:18:11 PM [facility] us Savage José Miguel DO IMG OB US PROCEDURES Final Resul t from Last 3 Months Insurance , [address] [place] [address] [employer]
--- OUTSIDE RECORDS SUMMARY | 2024-09-29 19:42 | XMS_ITS | Encounter Summary ---
Author Organization [facility] Address [address] [place] [address] Care Team Providers Care Ticket Clerk Name Role Phone Unavailable Primary Care Provider Unavailabl e Encounter Details Date Type Department Care Team (Late st Contact Info) Description 09/07/2024 Abstract [facility] [address] [place] [address] Savage Valdez DO [address], [place] [address] Social History Tobacco Use Types Packs/Day Years [...] on file documented as of this encounter Plan of Treatment Upcoming Encounters Date Type Department Care Team (Late st Contact Info) Description 10/28/2024 2:20 PM EDT Routine [facility] [address] [place] [address] Savage aVldez DO [address], [facility]11 documented as of this encounter Visit Diagnoses Not on filedocumented in this encounter
--- OUTSIDE RECORDS SUMMARY | 2024-09-29 19:42 | XMS_ITS | Encounter Summary ---
Author Organization [facility] Address [id number] [address] [place] [address] Care Team Providers Care Clinic Specialist Name Role Phone Cheli Harris VULCANIZER OPERATOR-REFRACTORY REPAIRER Primary Care Provid er Reason for Visit * Reason Onset Date Comments Medical records not found 12/07/2019 Encounter Details Date Type Department Care Team (Late st Contact Info) Description 12/07/2019 Telephone [facility] [address] [place] [id number] Marissa Garcia RN Medical records not found Social History Tobacco Use Types Packs/Day Years Used Date Smoking Tobacco: Every Day Cigarettes 0.3 15.5 Started: 03/25/2009 Smokeless Tobacco: Never Alcohol Use Standard Drinks/Week Comments Yes 0 (1 standard drink = 0.6 oz pur e alcohol) SOCIAL Childcare Answer Date Recorded Childcare Unknown 09/03/2018 Employment Answer Date Recorded Employment Unknown 09/03/2018 Comments No Sex and Gender Information Value Date Recorded Sex Assigned at Not on file Legal Sex Female 11:47 AM EDT Gender Identity Not on file Sexual Orientation Not on file COVID-19 Exposure Response Date Recorded In the last month, have you been in contact with someone who was confirmed or suspected to have Coronavirus / COVID-19? No / Unsure 12/08/2019 10:11 AM EDT documented as of this encounter Miscellaneous Notes * Telephone Encounter - Marissa Garcia RN - 12/07/2019 12:28 PM EDT I received a faxed response from Health Information management letting you know they could not complete medical records request. I called to confirm no record can be found for electron microscope exam of platelets. They do not have records prior to 2009. documented in this encounter Plan of Treatment Not on file documented as of this encounter Visit Diagnoses Not on filedocumented in this encounter Additional Health Concerns Infection Onset Date Last Indicated Resolved Time COVID-19 Rule-Out 01/22/2021 01/22/2021 01/22/2021 11:35 PM EDT COVID-19 Positive 10/27/2021 10/27/2021 11/17/2021 11:12 PM EDT documented as of this encounter Care Teams Clinic Specialist Relationship Specialty Start Date End Date Cheli Harris, VULCANIZER OPERATOR-REFRACTORY REPAIRER [address] PM 09/21/24 [place] [address] PCP - General Family Medicine 07/21/24 documented as of this encounter
--- OUTSIDE RECORDS SUMMARY | 2024-09-29 19:42 | XMS_ITS | Encounter Summary ---
Author Organization [facility] Address [address] [place] [address] Care Team Providers Care Coin Machine Assembler Name Role Phone Unavailable Primary Care Provider Unavailabl e Encounter Details Date Type Department Care Team (Late st Contact Info) Description 08/14/2024 Abstract [facility] [address] [place] [address] Savage Valdez DO [address], [place] [address] Social History Tobacco Use Types Packs/Day Years [...] PM EDT Routine [facility] [address] [place] [address] Savage Valdez DO [address], [facility]11 documented as of this encounter Visit Diagnoses Not on filedocumented in this encounter
--- OUTSIDE RECORDS SUMMARY | 2024-09-29 19:42 | XMS_ITS | Encounter Summary ---
Author Organization [facility] Address [address] [place] [address] Care Team Providers Care Senior Linux Systems Administrator Name Role Phone Unavailable Primary Care Provider Unavailabl e Encounter Details Date Type Department Care Team (Late st Contact Info) Description 09/29/2024 Bamboo flowsheet [facility] [address] [facility] [place] [address] Samantha Lira PA [address] [facility] [address] [place], [place] [address] Social History Tobacco Use Types Packs/Day Years [...] PM EDT Routine [facility] [address] [facility] [place] [address] Savage Valdez DO [address] [facility] [address] [place], [facility]11 documented as of this encounter Visit Diagnoses Not on filedocumented in this encounter
--- OUTSIDE RECORDS SUMMARY | 2024-09-29 19:42 | XMS_ITS | Encounter Summary ---
Author Organization [facility] Address [address] [place] [address] Care Team Providers Care Hairspring Adjuster Name Role Phone Unavailable Primary Care Provider Unavailabl e Encounter Details Date Type Department Care Team (Late st Contact Info) Description 09/07/2024 Abstract [facility] [address] [place] [address] Savage Valdez DO [address], [place] [address] Social History Tobacco Use Types Packs/Day Years [...] Routine [facility] [address] [place] [address] Savage Valdez DO [address], [facility]11 documented as of this encounter Visit Diagnoses Not on filedocumented in this encounter
--- OUTSIDE RECORDS SUMMARY | 2024-09-29 19:42 | XMS_ITS | Encounter Summary ---
Author Organization [facility] Address [address] [place] [address] Care Team Providers Care Liner Inserter Name Role Phone Unavailable Primary Care Provider Unavailabl e Encounter Details Date Type Department Care Team (Late st Contact Info) Description 08/13/2024 Abstract [facility] [address] [place] [address] Savage Valdez DO [address], [place] [address] Social History Tobacco Use Types Packs/Day Years [...] Routine [facility] [address] [place] [address] Savage Valdez DO [address], [facility]11 documented as of this encounter Visit Diagnoses Not on filedocumented in this encounter
--- OUTSIDE RECORDS SUMMARY | 2024-09-29 19:42 | XMS_ITS | Encounter Summary ---
Author Organization [facility] Address [address] [place] [address] Care Team Providers Care Glove Factory Sewer Name Role Phone Unavailable Primary Care Provider Unavailabl e Encounter Details Date Type Department Care Team (Late st Contact Info) Description 09/22/2024 Telephone [facility] [address] [place] [address] Savage Valdez, DO [address] [place], [id number] Social History Tobacco Use Types Packs/Day Years [...] encounter Miscellaneous Notes * Telephone Encounter - Yajaira Thomas LPN - 09/22/2024 1:17 PM EDT 1:04 pm Patient called the office and she states that she ws looking at the [place] and that it did show that 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 And she is really worried and stressed. 1:19 pmPatient call was returned and she was advised with reading from [place] site and the results here in office that everything shows Low risk. Patient not sure if saw something different as she waswatching a video but she was reassured that all testing showed low risk. documented in this encounter Plan of Treatment Upcoming Encounters Date Type Department Care Team (Late st Contact Info) Description 10/28/2024 2:20 PM EDT Routine [facility] [address] [facility] [place] [address] Savage Valdez, [address] [facility] [place] [address] documented as of this encounter Visit Diagnoses Not on filedocumented in this encounter
--- OUTSIDE RECORDS SUMMARY | 2024-09-29 19:42 | XMS_ITS | Encounter Summary ---
Author Organization [facility] Address [address] [place] [address] Care Team Providers Care University Administrative Assistant Name Role Phone Unavailable Primary Care Provider Unavailabl e Encounter Details Date Type Department Care Team (Late st Contact Info) Description 08/13/2024 Abstract [facility] [address] [place] [address] Savage Valdez DO [address], [place] [address] Social History Tobacco Use Types Packs/Day Years [...] [address] Savage Valdez DO [address], [facility]11 documented as of this encounter Visit Diagnoses Not on filedocumented in this encounter
--- OUTSIDE RECORDS SUMMARY | 2024-09-29 19:42 | XMS_ITS | Encounter Summary ---
Author Organization [facility] Address [address] [place] [address] Care Team Providers Care Furniture Manager Name Role Phone Unavailable Primary Care Provider Unavailabl e Encounter Details Date Type Department Care Team (Late st Contact Info) Description 08/26/2024 Abstract [facility] [address] [place] [address] Savage Valdez DO [address], [place] [address] Social History Tobacco Use Types Packs/Day Years [...] [address] Savage Valdez DO [address], [facility]11 documented as of this encounter Visit Diagnoses Not on filedocumented in this encounter
--- OUTSIDE RECORDS SUMMARY | 2024-09-29 19:43 | XMS_ITS | Clinical Summary ---
Author Organization [facility] Address [id number] [place] [address] Care Team Providers Care Senior National Account Manager Name Role Phone Cheli Harris APRN-LACE FINISHER Primary Care Provid er Allergies Active Allergy Reactions Criticality Noted Date Comments Cephalexin 11/18/2019 Pt states she has had multiple symptoms since taking this, feels like she is on fire, feels like she is going to pass out and it caused a yeast infection Medications * This document contains information received from the source organization and may not represent a complete record from that organization. BRIXADI 96 mg/0.27 mL solution, extended rel syringe 07/16/19 25 Active levETIRAcetam (KEPPRA) 500 mg tablet Oral for 30 Days 11/27/19 24 Active promethazine (PHENERGAN) 25 mg/mL injection 08/31/19 25 Active ibuprofen (MOTRIN) 800 mg tablet Take 1 tablet (800 mg total) by mouth 3 (three) times a day. 21 tablet 11/19/19 22 025 Discontinu ed(Therapy completed) amoxicillin-pot clavulanate (AUGMENTIN) 875-125 mg per tablet TAKE 1 TABLET BY MOUTH EVERY 12 HOURS UNTIL GONE 07/18/19 25 025 Discontinu ed(Therapy completed) cloNIDine (CATAPRES) 0.1 mg tablet Take 1 tablet (0.1 mg total) by mouth 3 (three) times a day as needed. 04/28/19 25 06/18/2 025 Discontinu ed(Therapy completed) naloxone (NARCAN) 4 mg/actuation spray,non-aerosol nasal spray USE DIRECTED TO REVERSE SUSPECTED OR CONFIRMED OPIOID OVERDOSE AND CALL 911! 06/20/19 25 Discontinu ed(Therapy completed) ARIPiprazole (ABILIFY) 10 mg tabletIndications: Bipolar 1 disorder with moderate jim (CMS-HCC) Take 1 tablet (10 mg total) by mouth in the morning. 30 tablet 2 07/22/19 25 025 Discontinu ed(Therapy completed) sertraline (ZOLOFT) 50 mg tabletIndications: Bipolar 1 disorder with moderate jim (CMS-HCC) Take 2 tablets (100 mg total) by mouth in the morning. 30 tablet 2 07/22/19 25 025 Discontinu ed(Therapy completed) prazosin (MINIPRESS) 2 mg capsuleIndications :Night terror Take 1 capsule (2 mg total) by mouth nightly. 30 capsule 2 07/22/19 25 Discontinu ed(Therapy completed) hydrOXYzine (ATARAX) 25 mg tabletIndications: Other insomnia Take 1 tablet (25 mg total) by mouth nightly as needed for itching. 30 tablet 2 07/22/19 025 Discontinu ed(Therapy completed) omeprazole (PriLOSEC) 20 mg capsuleIndications :Gastroesophageal reflux disease without esophagitis Take 1 capsule (20 mg total) by mouth every morning before breakfast. 30 capsule 2 07/22/19 25 025 Discontinu ed(Therapy completed) lamoTRIgine (LaMICtal) 100 mg tabletIndications: Bipolar 1 disorder with moderate jim (CMS-HCC) Take 1 tablet (100 mg total) by mouth in the morning. 30 tablet 2 07/22/19 25 025 Discontinu ed(Therapy completed) ondansetron ODT (ZOFRAN ODT) 4 mg disintegrating tablet Dissolve 1 tablet (4 mg total) on tongue every 6 (six) hours as needed. 08/14/19 25 Active Problems Patient Care Coordination No te Formatting of this note migh t be different from the original. Ped Echo 01/01 Problem Noted Date Diagnosed Date History of cocaine use 12/30/2023 Cannabis-related disorder 02/23/2020 Cigarette nicotine dependenc e with nicotine-induced disorder 05/29/2016 PTSD (post-traumatic stress disorder) 05/18/2016 Panic disorder with agoraphobia and severe panic attacks 05/18/2016 Bipolar I disorder, most recent episode depresse d 05/18/2016 GERD (gastroesophageal reflux disease) 7 Asthma 03/26/2016 Fibromyalgia 03/26/2016 Preoperative evaluation to r ule out surgical contraindication Abnormal EKG Comments Yes Resolved Problems Problem Noted Date Diagnosed Date Resolved Date Pre-op evaluation 11/19/2019 12/30/2023 Abnormal EKG 01/20/2018 01/20/2018 Bipolar disorder, unspecified 07/16/2016 12/30/2023 Bipolar disorder, unspecified 05/30/2016 07/16/2016 Bipolar disorder current episode depressed 05/18/2016 07/16/2016 Cannabis abuse 05/18/2016 07/16/2016 Tobacco use disorder 03/26/2016 024 Bipolar disorder, unspecified 02/09/2016 05/30/2016 Encounters Date Type Department Care Team Description 09/09/2024 3:40 PM EDT Office Visit [facility] [address] [place] [address] Cheli Harris WIND OPERATIONS SUPERVISOR-LACE FINISHER Bipolar 1 disorder ([facility]-HCC) (Primary Dx); with 10 completed weeks gestation 09/09/2024 Travel 07/21/2024 2:00 PM EDT Office Visit [facility] [address] [place] [address] Cheli Harris WIND OPERATIONS SUPERVISOR-LACE FINISHER Bipolar 1 disorder with moderate jim (CMS-HCC) (Primary Dx); Other specified attention deficit hyperactivity disorder (ADHD); Night terror; Other insomnia; Gastroesophageal reflux disease without esophagitis; Cocaine dependence without complication (CMS-HCC) 07/21/2024 Travel from Last 3 Months Family History Medical History Relation Name Comments Alcohol abuse Brother Bipolar disorder Brother Alcohol abuse Father Alcohol abuse Maternal Grandfather Alcohol abuse Maternal Grandmother Heart disease Maternal Grandmother Alcohol abuse Mother Bipolar disorder Mother Depression Mother Diabetes Neg Hx Relation Name Status Comments Brother Father Maternal Grandfather Maternal Grandmother Mother Social History Tobacco Use Types Packs/Day Years Used Date Smoking Tobacco: Every Day Cigarettes 0.5 15.5 Started: 03/25/2009 Smokeless Tobacco: Never Tobacco Cessation:Ready to Q uit: Not Asked; Counseling Given: Not Answered Alcohol Use Standard Drinks/Week Comments Not Currently 0 (1 standard drink = 0.6 oz pur e alcohol) been sober almost a year PHQ-2 Answer Date Recorded Total Score 0 09/09/2024 Childcare Answer Date Recorded Childcare Unknown 09/03/2018 Employment Answer Date Recorded Employment Unknown 09/03/2018 Hunger Screening Answer Date Recorded Within the past 12 months we worried whether our food would run out before we got money to buy more. Never True 09/09/2024 Within the past 12 months th e food we bought just didn't last and we didn't have money to get more. Never True 09/09/2024 Purpose - Life Answer Date Recorded Purpose and direction in life Unknown Comments Yes Sex and Gender Information Value Date Recorded Sex Assigned at Not on file Legal Sex Female 11:47 AM EDT Gender Identity Not on file Sexual Orientation Not on file Last Filed Vital Signs Vital Sign Reading Time Taken Comments Blood Pressure 104/74 09/09/2024 3:45 PM EDT Pulse 93 09/09/2024 3:45 PM EDT Temperature 37.1 C (98.7 F) 09/09/2024 3:45 PM EDT Respiratory Rate 18 09/09/2024 3:45 PM EDT Oxygen Saturation 98% 09/09/2024 3:45 PM EDT Inhaled Oxygen Concentration - - Weight 130 kg (286 lb 9.6 oz) 09/09/2024 3:45 PM EDT Height 165.1 cm (5' 5 ) 09/09/2024 3:45 PM EDT Body Mass Index 47.69 09/09/2024 3:45 PM EDT Plan of Treatment Health Maintenance Due Date Last Done Comments Tobacco Counseling 1992 Pap Smear 2013 DTaP,Tdap and Td Vaccines (7 - Td or Tdap) 11/05/2019 11/04/2009, 06/04/1997, 12/27/1993, Additional history exists Influenza Vaccine 11/23/2024 06/25/2019, 01/06/2010 Adult BMI Follow Up Plan 07/21/2025 09/09/2024 Tobacco Screening 07/21/2025 09/09/2024 Adult BMI Screening 09/09/2025 09/09/2024 Depression Screening 09/09/2025 09/09/2024 Medical Devices Implanted Type Area Shovel Log Loader Operator Device Identifier Shelf Expiration Date Model / Serial / Lot Mesh Pco Vntrl Ptch 6.6cm Rpl [id number] - Sna - [id number] Implanted:Qty: 1 on 11/27/2019 by Sean Wilson MD at [facility] Mesh N/A: Abdomen [employer] [place] 03/24/2023 [id number] / [id number] / [id number] Insurance [place] Advance Directives Documents on File Type Date Recorded Patient Ore Charger Expl anation Advance Directive 11/19/2019 3:04 PM AD * Full Code (Latest Code Status on File) Date Activated Date Inactivated Comments 07/16/2016 3:03 PM 07/26/2016 6:13 PM * Full Code Date Activated Date Inactivated Comments 03/26/2016 2:55 PM 03/29/2016 2:43 PM * Full Code Date Activated Date Inactivated Comments 02/09/2016 1:46 PM 02/13/2016 5:24 PM Care Teams Senior National Account Manager Relationship Specialty Start Date End Date Cheli Harris, WIND OPERATIONS SUPERVISOR-LACE FINISHER [address] PM 09/21/24 [place] [address] PCP - General Family Medicine 07/21/24
[2024-10-05 21:07] LABS: Age Gdln ACOG Testing Note (.); HPV Genotype 18,45 Negative (Negative); IGP, Aptima HPV, rfx 16/18,45 Note (.)
== END 2024-09-29 19:40 | disposition home or self-care (01) ==
LOC: LAB 19:39
PROVIDERS: PCP Nurse Practitioner; Visit Provider Physician Assistant
DX: Z01.419 Encounter for gynecological examination (general) (routine) without abnormal findings (principal)
CPT/HCPCS: 87624; 88175

== ENCOUNTER 2025-03-15 20:55 | Outpatient (REF) | payer OTHER, SELFPAY ==
--- OUTSIDE RECORDS SUMMARY | 2023-11-11 11:00 | XMS_ITS ---
Author Organization [facility] Address [address] [place], [place] [id number] Care Team Providers Care Account Specialist Name Role Phone Eunice Crooks Unavailable [phone] Verna Flores Unavailable [phone] REASON FOR VISIT Wellness Social History Sex Assigned At : Social History Observation Description Sex Assigned At Female Encounters Encounter Location Date Provider Diagnosis Main [address] [place], [place] [id number] 11/11/2023 Verna Flores Plan Of Treatment No Information Progress Notes * Alicia BARNES NDOB:08/1990 (34 yo F)Acc No.[id number]:11/11/2023 Progress Notes Patient: Claudia Alicia alvarez :?Verna FloresDOB:1990???Age:33 Y???Sex:Female Date:11/11/2023hone:[phone]:[id number], [address], [place], [id number] Subjective: * Chief Complaints: * W ellness * Electronic signature of AMARI Edmonds on 03/15/2025 at 08:58 PM ESTSign off status: Pending * Provider: Gibson Flores Date: 11/11/2023 Generated for Printing/Faxing/eTransmitting on:?03/15/2025 08:58 PM EST
--- OUTSIDE RECORDS SUMMARY | 2025-03-02 13:51 | XMS_ITS | Encounter Summary ---
Author Organization [employer] Address [id number] [address] [place] [address] Care Team Providers Care Leather Craftsman Name Role Phone No Pcp, No Pcp Primary Care Provider Unavailabl e Reason for Referral * Diagnostic Imaging (Routine) - Pending ReviewSpecialtyDiagnoses / Procedures Referred By ContactReferred To ContactMaternal and Medicine Diagnoses Fibromyalgia Cigarette nicotine dependence with nicotine-induced disorder History of cocaine use BMI 45.0-49.9, adult ([facility] Encounter for follow-up ultrasound of anatomy Procedures US MFM with or without consult Saloni Valdez DO [address] [place] [address] [place] [address] Phone: tel: fax: Maternal- Medicine at [facility] [address] [place] [address] Phone: tel: fax: Referral IDStatusReasonStart DateExpiration DateVisits RequestedVisits [id number]/ Reason for Visit * Diagnostic Imaging (Routine) - Pending ReviewSpecialtyDiagnoses / Procedures Referred By ContactReferred To ContactMaternal and Medicine Diagnoses Fibromyalgia Cigarette nicotine dependence with nicotine-induced disorder History of cocaine use BMI 45.0-49.9, adult ([facility]) Encounter for follow-up ultrasound of anatomy Procedures US MFM with or without consult Saloni Valdez, DO [address] [place] [address] Phone: tel: fax: Maternal- Medicine at [facility] [address] [place] [address] Phone: tel: fax: Referral IDStatusReasonStart DateExpiration DateVisits RequestedVisits [id number] Encounter Details DateTypeDepartmentCare Team (Latest Contact Info)Sbgddpsqmwj04/09/2025 1:51 PM EST - 03/02/2025 11:59 PM ESTHospital Encounter [facility] [address] [place] [address] Fibromyalgia; Cigarette nicotine dependence with nicotine-induced disorder; History of cocaine use; BMI 45.0-49.9, adult ([facility]); Encounter for follow-up ultrasound of anatomy Discharge Disposition: Home Social History Tobacco UseTypesPacks/DayYears UsedDateSmoking Tobacco: Every DayCigarettes0.516 Started: 03/25/2009Smokeless Tobacco: NeverAlcohol UseStandard Drinks/Week CommentsNot Currently0 (1 standard drink = 0.6 oz pure alcohol)been sober almost a yearPHQ-2AnswerDate RecordedTotal Frcwx2825ChildcareAnswerDate Recorded EuabqqpwbDxutrmq08/12/2019EmploymentAnswerDate RecordedEmploymentUnknown 09/03/2018Hunger ScreeningAnswerDate RecordedWithin the past 12 months we worried whether our food would run out before we got money to buy more.Never True11/16/2024Within the past 12 months the food we bought just didn't last and we didn't have money to get more.Never True11/16/2024Purpose - LifeAnswerDate RecordedPurpose and direction in vugrYbqyrio28/13/2021Estimated Date of ZxavuvqmUahpuqkoWqt98/11/2026Based on UltrasoundSex and Gender InformationValue Date RecordedSex Assigned at BirthNot on fileLegal ZtsRicvlc94/06/2015 11:47 AM EDTGender IdentityNot on fileSexual OrientationNot on filedocumented as of this encounter Medications at Time of Discharge MedicationSigDispense QuantityRefillsLast FilledStart DateEnd Date ARIPiprazole (ABILIFY) 5 mg tablet Take 1 tablet (5 mg total) by mouth in the morning. ARIPiprazole lauroxil (ARISTADA) 1,064 mg/3.9 mL suspension,extended rel syring injection Inject 3.9 mL (1,064 mg total) into the appropriate muscle every 60 (sixty) days. BRIXADI 96 mg/0.27 mL solution, extended rel syringe 07/15/2024 citalopram (CeleXA) 10 mg tablet Take 1 tablet (10 mg total) by mouth in the morning. levETIRAcetam (KEPPRA) 500 mg tablet Oral for 30 Days11/27/2023 ondansetron (ZOFRAN) 4 mg tablet Take 1 tablet (4 mg total) by mouth every 8 (eight) hours as needed for nausea or vomiting. oa175-xmoo-ptgyt acid ( 19) 29 mg iron- 1 mg tablet,chewable Chew 1 tablet and swallow in the morning. promethazine (PHENERGAN) 25 mg/mL injection 08/30/2024 venlafaxine (EFFEXOR) 37.5 mg tablet Take 1 tablet (37.5 mg total) by mouth in the morning and 1 tablet (37.5 mg total) before bedtime.documented as of this encounter Plan of Treatment Not on file documented as of this encounter Procedures Procedure NamePriorityDate/TimeAssociated DiagnosisCommentsUS [facility] OB FOLLOW-UP, 1 CIHIMPgvcble76/09/2025 2:47 PM EST Fibromyalgia Cigarette nicotine dependence with nicotine-induced disorder History of cocaine use BMI 45.0-49.9, adult ([facility]) Encounter for follow-up ultrasound of anatomy documented in this encounter Results * US MF OB FOLLOW-UP, 1 FETUS (03/02/2025 2:47 PM EST)Anatomical Region LateralityModalityOB-GYNUltrasoundSpecimen (Source)Anatomical Location / LateralityCollection Method / VolumeCollection TimeReceived Time03/02/2025 2:14 PM EST Narrative 03/02/2025 4:30 PM EST NAME: ??KENYA MORATAYA : 1990 SEX: F Accession Number: [id number] ORDERING PHYSICIAN: SALONI VALDEZ REFERRING PHYSICIAN: SALONI VALDEZ Coding Procedures ? 38564: Ultrasound, uterus, real time with image documentation, follow up,transabdominal ? approach per fetus Indication Obesity in , Supervision of high risk (opioid addiction), Known or suspected damage to fetus by drugs, marijuana use in , Smoking in , Anxiety, Depression, Screening for follow-up survey. History OB History ? 1. Para 0 ? [id number] Current Cell free DNA ?Low Risk analysis Maternal Assessment Physical Exam ??Height 165 cm, 5 ft 5 in. Initial weight 131 kg, 289 lb. Initial BMI 48.09 kg/m?? Method Transabdominal ultrasound examination. View: Suboptimal view: limited by late gestational age. Celis . Number of fetuses: 1 Dating Cycle: LMP date not known Previous Ultrasound on: ?08/13/2024 Type of prior assessment: ?GA GA at prior assessment date ?6 w + 4 d GA by previous U/S ? 35 w + 2 d EDNA by previous Ultrasound: ?04/04/2025 Ultrasound examination on: ? 03/02/2025 GA by U/S based upon: ??AC, BPD, Femur, HC GA by U/S ?35 w + 6 d EDNA by U/S: ?03/31/2025 Assigned: ?based on ultrasound (GA), selected on 11/16/2024 Assigned GA (weeks days) ? 35 w + 2 d Assigned EDNA: ??04/04/2025 General Evaluation Cardiac activity Present. FHR 136 bpm. Presentation: cephalic Placenta: Placental site: anterior, fundal, away from cervical os Umbilical cord: Cord vessels: 3 vessel cord. Insertion site: documented previously Amniotic fluid: Amount of AF: normal amount. MVP 3.0 cm Biometry Standard BPD ?88.1 mm 35w 4d 63% Hadlock OFD ?110.4 mm ?36w 5d 80% Gallo HC ? 315.1 mm ?35w 3d 19% Hadlock AC ? 335.5 mm ?37w 3d 97% Hadlock Femur ??67.9 mm 34w 6d 33% Hadlock Humerus ?58.6 mm 33w 6d 35% Gallo HC / AC ?0.94 EFW ?2,926 g ??78% Hadlock EFW (lb) ? 6 lb EFW (oz) ? 7 oz EFW by: ?Hadlock (MEP-SW-AD-FL) Extended Tibia ??59.2 mm 34w 4d 59% Gallo Body Designer ? 1.6 mm Head / Face / Neck Cephalic index 0.80 ? 37% Nicolaides Nasal bone: ?present Extremities / Bony Struc FL / BPD ? 0.77 FL / HC ?0.22 FL / AC ?0.20 Other Structures FHR ?136 bpm Anatomy The following structures appear normal: Head/Neck: Cranium. Lateral ventricles. Cavum septi pellucidi. Parenchyma. Face: Lips. Nose. Nasal bone. Heart/Thorax: 4-chamber view. Cardiac position. Cardiac axis. Cardiac size. Cardiac rhythm. ? Diaphragm. Abdomen: Stomach. Kidneys. Bladder. The following structures could not be adequately visualized: Face ?? Profile. Spine: Cervical spine. Thoracic spine. Lumbar spine. Sacral spine. Extremities/Skeleton: Right foot. Left foot. Skeleton The following structures could not be examined: Heart / Thorax 3-vessel view. Interventricular septum. Great vessels. The following structures were documented previously: Head / Neck ?Choroid plexus. Midline falx. Cerebellum. Cisterna magna. Vermis. ? Neck. Face ?? Maxilla. Mandible. Orbits. Heart / Thorax RVOT view. LVOT view. 9-dedwcf-ryonvxw view. Situs. Aortic arch view. Bicaval view. Ductal arch view. ? Right lung. Left lung. Abdomen ?Abdom. wall. Cord insertion. Right renal artery. Left renal artery. Genitals. Extremities / ??Right upper arm. Right forearm. Right hand. Left upper arm. Left forearm. Left hand. Right upper leg. ? Right lower leg. Left upper leg. Left lower leg. Maternal Structures Uterus Visualized Cervix Suboptimal Right Ovary ?Not visualized Left Ovary ? Not visualized Cul de Sac ? Suboptimal Impression Single live intrauterine at 35w 2d. Normal growth. EFW measures at the 78%, AC measures at the 97%. Amniotic fluid MVP measures 3 cm. 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 Recommendations anatomic survey is incomplete due to late gestational age and suboptimal visualization. Patient is not scheduled to return for additional ultrasound. Please reschedule for specific concerns or indications. Please see [facility] recommendations from prior clinical and/or ultrasound report documentation. Subsequent follow up or other follow up as clinically determined by primary OB provider unless otherwise specified by MFM. Results forwarded to ordering provider so they can follow up with the patient as necessary. Procedure Note William John MD - 03/02/2025 NAME: KENYA MORATAYA : 1990 SEX: F Accession Number: [id number] ORDERING PHYSICIAN: SALONI VALDEZ REFERRING PHYSICIAN: SALONI VALDEZ Coding Procedures 85661: Ultrasound, uterus, real time with image documentation, follow up, transabdominal approach per fetus Indication Obesity in , Supervision of high risk (opioidaddiction), Known or suspected damage to fetus by drugs, marijuana use in , Smoking in , Anxiety, Depression,Screening for follow-up survey. History OB History 1. Para 0 [id number] Current Cell free DNA Low Risk analysis Maternal Assessment Physical Exam Height 165 cm, 5 ft 5 in. Initial weight 131 kg, 289 lb.Initial BMI 48.09 kg/m?? Method Transabdominal ultrasound examination. View: Suboptimal view: limited bylate gestational age. Celis . Number of fetuses: 1 Dating Cycle: LMP date not known Previous Ultrasound on: 08/13/2024 Type of prior assessment: GA GA at prior assessment date 6 w + 4 d GA by previous U/S 35 w + 2 d EDNA by previous Ultrasound: 04/04/2025 Ultrasound examination on: 03/02/2025 GA by U/S based upon: AC, BPD, Femur, HC GA by U/S 35 w + 6 d EDNA by U/S: 03/31/2025 Assigned: based on ultrasound (GA), selected on 11/16/2024 Assigned GA (weeks days) 35 w + 2 d Assigned EDNA: 04/04/2025 General Evaluation Cardiac activity Present. FHR 136 bpm. Presentation: cephalic Placenta: Placental site: anterior, fundal, away from cervical os Umbilical cord: Cord vessels: 3 vessel cord. Insertion site: documented previously Amniotic fluid: Amount of AF: normal amount. MVP 3.0 cm Biometry Standard BPD 88.1 mm 35w 4d 63% Hadlock OFD 110.4 mm 36w 5d 80% Gallo HC 315.1 mm 35w 3d 19% Hadlock AC 335.5 mm 37w 3d 97% Hadlock Femur 67.9 mm 34w 6d 33% Hadlock Humerus 58.6 mm 33w 6d 35% Gallo HC / AC 0.94 EFW 2,926 g 78% Hadlock EFW (lb) 6 lb EFW (oz) 7 oz EFW by: Hadlock (TCG-VM-IK-FL) Extended Tibia 59.2 mm 34w 4d 59% Gallo Body Designer 1.6 mm Head / Face / Neck Cephalic index 0.80 37% Nicolaides Nasal bone: present Extremities / Bony Struc FL / BPD 0.77 FL / HC 0.22 FL / AC 0.20 Other Structures FHR 136 bpm Anatomy The following structures appear normal: Head/Neck: Cranium. Lateral ventricles. Cavum septi pellucidi.Parenchyma. Face: Lips. Nose. Nasal bone. Heart/Thorax: 4-chamber view. Cardiac position. Cardiac axis. Cardiacsize. Cardiac rhythm. Diaphragm. Abdomen: Stomach. Kidneys. Bladder. The following structures could not be adequately visualized: Face Profile. Spine: Cervical spine. Thoracic spine. Lumbar spine. Sacral spine. Extremities/Skeleton: Right foot. Left foot. Skeleton The following structures could not be examined: Heart / Thorax 3-vessel view. Interventricular septum. Great vessels. The following structures were documented previously: Head / Neck Choroid plexus. Midline falx. Cerebellum. Cisterna magna.Vermis. Neck. Face Maxilla. Mandible. Orbits. Heart / Thorax RVOT view. LVOT view. 0-ahaffp-tagkyru view. Situs. Aorticarch view. Bicaval view. Ductal arch view. Right lung. Left lung. Abdomen Abdom. wall. Cord insertion. Right renal artery. Left renalartery. Genitals. Extremities / Right upper arm. Right forearm. Right hand. Left upper arm.Left forearm. Left hand. Right upper leg. Right lower leg. Left upper leg. Left lower leg. Maternal Structures Uterus Visualized Cervix Suboptimal Right Ovary Not visualized Left Ovary Not visualized Cul de Sac Suboptimal Impression Single live intrauterine at 35w 2d. Normal growth. EFW measures at the 78%, AC measures at the 97%. Amniotic fluid MVP measures 3 cm. 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 Recommendations anatomic survey is incomplete due to late gestational age andsuboptimal visualization. Patient is not scheduled to return for additional ultrasound. Please reschedule for specific concerns or indications. Please see [facility] recommendations from prior clinical and/or ultrasoundreport documentation. Subsequent follow up or other follow up as clinically determined byprimary OB provider unless otherwise specified by M. Results forwarded to ordering provider so they can follow up with thepatient as necessary. Authorizing ProviderResult TypeResult StatusCorey Freddie Valdez [facility] ORDERABLES Final Result documented in this encounter Visit Diagnoses Diagnosis Fibromyalgia Unspecified myalgia and myositis Cigarette nicotine dependence with nicotine-induced disorder History of cocaine use BMI 45.0-49.9, adult ([facility]) Encounter for follow-up ultrasound of anatomy documented in this encounter Additional Health Concerns AssessmentNoted TimePHQ-9 Depression Total Score: 3:43 PM EDTA Body Mass Index follow-up plan has been documented for the bozoydw0909/09/2024 4:08 PM EDTdocumented as of this encounter Care Teams Team MemberRelationshipSpecialtyStart DateEnd Date No Pcp, [place] [address] PCP - GeneralFamily Uaebxfbn08/9/25documented as of this encounter
--- OUTSIDE RECORDS SUMMARY | 2025-03-15 13:20 | XMS_ITS | Encounter Summary ---
Author Organization [facility] Address [address] [place] [address] Care Team Providers Care Blood Bank Worker Name Role Phone Unavailable Primary Care Provider Unavailabl e Reason for Visit * ReasonCommentsRoutine Visit Encounter Details DateTypeDepartmentCare Team (Latest Contact Info)Bnpgzveskcz67/22/2025 1:20 PM ESTRoutine [facility] [address] [place] [address] Samantha Lira PA [address] [place], [place] [id number] 37 weeks gestation of ([facility]); Third trimester ([facility]) Social History Tobacco UseTypesPacks/DayYears UsedDateSmoking Tobacco: Never Assessed Estimated Date of EtfcczipRxgblfmdDmj14/11/2026ased on Ultrasound, FHR-122Sex and Gender InformationValueDate RecordedSex Assigned at LmbxiOngmhs03/04/2024 2:19 PM EDTLegal IceXpgleg84/15/2023 7:05 PM EDTGender HlnubhrnRluflr99/04/2024 2:19 PM EDTSexual OrientationNot on filedocumented as of this encounter Last Filed Vital Signs Vital SignReadingTime TakenCommentsBlood Qcfigwrk460/8203/15/2025 1:51 PM EST Pulse--Temperature--Respiratory Rate--Oxygen Saturation--Inhaled Oxygen Concentration--Yuvgwo249 kg (280 lb)03/15/2025 1:51 PM ESTHeight--Body Mass Index45.8902 12:00 PM ESTdocumented in this encounter Progress Notes * GINNY Nicholas - 03/15/2025 1:20 PM EST Reason for Appointment: Patient ID: Alicia Barnes is a 34 y.o. female who presents for No chief complaint on file. Patient presents today for Return OB appointment. MEDICATIONS Current Outpatient Medications Medication Instructions ondansetron ODT (ZOFRAN-ODT) 4 mg, Every 8 hours PRN MV-Min-Fe Fum-FA-DHA ( 1 PO) 1 tablet, Daily promethazine (PHENERGAN) 12.5 mg, Oral, Every 6 hours PRN, Take 1 tablet by mouth every 6 hours as needed for nausea. promethazine (PHENERGAN) 12.5 mg, Oral, Every 6 hours PRN, Take 1 tablet by mouth every 6 hours as needed for nausea. venlafaxine XR (EFFEXOR XR) 37.5 mg, Oral, Daily, Do not crush or chew. ALLERGIES Allergies Allergen Reactions Cephalexin Other Reaction(s): [...] neuropathy 11/27/2023 Bilateral carpal tunnel syndrome 11/27/2023 Hx of opioid abuse ([facility]) 09/29/2024 Resolved Ambulatory Problems Diagnosis Date Noted No [...] SYSTEMS Review of Systems: Review of Systems Constitutional: Negative. HENT: Negative. Eyes: Negative. Respiratory: Negative. Cardiovascular: Negative. Gastrointestinal: Negative. Genitourinary: Negative. Musculoskeletal: Negative. Skin: Negative. Neurological: Negative. All other systems reviewed and are negative. Hematological: Negative. Endocrine: Negative. Allergic/Immunologic: Negative. OBJECTIVE Objective: Physical Exam Constitutional: Appearance: Normal [...] nursing note reviewed. Exam conducted with a clinical application specialist present. Vitals: Estimated body mass index is 44.8 kg/m?? as calculated from the following: Height as of 05/09/18: 5' 5.5 . Weight as of 12/03/24: 273 lb 6.4 oz. BP: No LMP recorded. Patient is . Assessment/Plan ICD-10-CM 1. 37 weeks gestation of ([facility] Z3A.37 Assessment/Plan Patient is doing well but has complaints of being tired and having maternal discomfort due to . Patient verbalized frequent movement and was instructed to perform kick counts three times per day. labor precautions were given, LARC consent was signed/declined, and GBS was obtained. Cervical check was performed and patient is 0cm dilated. Patient stated she had a relapse and used cocaine once while being and has smoked marijuana. And is trying to get herself into a rehab facility due to her addiction. Follow Up: Patient is to return to office in 1 week for routine OB appointment. Documented by Any Light LPN on behalf of: GINNY Nicholas documented in this encounter Plan of Treatment DateTypeDepartmentCare Team (Latest Contact Info)Sjxaleuozmh09/29/2025 2:20 PM ESTRoutine [facility] [address] [place] [address] Sahra Sellers, UNDERGROUND DRILL OPERATOR [address] [place] [address] NameTypePriorityAssociated DiagnosesOrder ScheduleCULTURE, GROUP B STREP WITH SUSCEPTIBLITYLabRoutine 37 weeks gestation of ([facility]) Third trimester ([facility]) Expected: 03/15/2025, Expires: 03/15/2026Hemoglobin W0pShdYgbqwow 37 weeks gestation of ([facility]) Third trimester ([facility]) Expected: 03/15/2025 (Approximate), Expires: 03/15/2026documented as of this encounter Procedures Procedure NamePriorityDate/TimeAssociated DiagnosisCommentsPOCT URINALYSIS FVKQIZWIIfimptw88/22/2025 1:53 PM EST 37 weeks gestation of ([facility]) Third trimester ([facility]) documented in this encounter Results * (ABNORMAL) POCT urinalysis dipstick manually resulted (03/15/2025 1:53 PM EST) ComponentValueRef RangeTest MethodAnalysis TimePerformed AtPathologist SignatureColor, UAYellowClarity, UACloudyGlucose, UANegativeNegative - 1999(110) ++++ mg/dLBilirubin, UANegativeNegative - 4(70) +++ mg/dLKetones, UA NegativeNegative - 160(16) ++++ mg/dLSpec Grav, UA1.0301 - 1.03Blood, UA NegativeNegative - 50 Oni/mcLpH, UA6.05 - 9Protein, UA1+Negative - 2000(20) ++++ mg/dLUrobilinogen, UA0.20.2 - 12 mg/dLLeukocytes, UANegativeNegative - 500+++ Kenia/mcLNitrite, UANegativeNegative - PositiveSpecimen (Source) Anatomical Location / LateralityCollection Method / VolumeCollection Time Received ZqbjNtuad82/22/2025 1:53 PM EST Narrative Authorizing ProviderResult TypeResult StatusSamantha Lira PAPOINT OF CARE TEST ENTER/EDIT ORDERABLESFinal Result documented in this encounter Visit Diagnoses Diagnosis 37 weeks gestation of ([facility]) Third trimester ([facility]) state, incidental documented in this encounter
--- OUTSIDE RECORDS SUMMARY | 2025-03-15 20:58 | XMS_ITS | Clinical Summary ---
Author Organization [facility] [employer] [facility] Address [address] [place] [address] Care Team Providers Care Mortgage Accounting Clerk Name Role Phone Pcp, No Primary Care Provider [phone] Social History Tobacco UseTypesPacks/DayYears UsedDateSmoking Tobacco: Never Assessed CommentsUnknownSex and Gender InformationValueDate RecordedSex Assigned at Not on fileLegal DwaEtqpak07/10/2022 4:07 PM ESTGender IdentityNot on fileSexual OrientationNot on file Plan of Treatment Not on file Medical Devices Not on file Care Teams Team MemberRelationshipSpecialtyStart DateEnd Date Pcp, No PCP - GeneralFamily Medicine06/01/21
--- OUTSIDE RECORDS SUMMARY | 2025-03-15 20:59 | XMS_ITS | Encounter Summary ---
Author Organization [employer] tem Address [id number] [address] [place] [address] Care Team Providers Care Cougar Hunter Name Role Phone No Pcp, No Pcp Primary Care Provider Unavailabl e Encounter Details DateTypeDepartmentCare Team (Latest Contact Info)Etlgrqhaosr79/09/2025Travel Social History Tobacco UseTypesPacks/DayYears UsedDateSmoking Tobacco: Every DayCigarettes0.516 Started: 03/25/2009Smokeless Tobacco: NeverAlcohol UseStandard Drinks/Week CommentsNot Currently0 (1 standard drink = 0.6 oz pure alcohol)been sober almost a yearPHQ-2AnswerDate RecordedTotal Adyyp5675ChildcareAnswerDate Recorded XbjiklikmWjwlvwa79/12/2019EmploymentAnswerDate RecordedEmploymentUnknown 09/03/2018Hunger ScreeningAnswerDate RecordedWithin the past 12 months we worried whether our food would run out before we got money to buy more.Never True11/16/2024Within the past 12 months the food we bought just didn't last and we didn't have money to get more.Never True11/16/2024Purpose - LifeAnswerDate RecordedPurpose and direction in iocaAovioul95/13/2021Estimated Date of FaxkjykeGxecvqrpBae15/11/2026Based on UltrasoundSex and Gender InformationValue Date RecordedSex Assigned at BirthNot on fileLegal GboAlpyjx95/06/2015 11:47 AM EDTGender IdentityNot on fileSexual OrientationNot on filedocumented as of this encounter Plan of Treatment Not on file documented as of this encounter Visit Diagnoses Not on filedocumented in this encounter Additional Health Concerns AssessmentNoted TimePHQ-9 Depression Total Score: 3:43 PM EDTA Body Mass Index follow-up plan has been documented for the eslycsg6609/09/2024 4:08 PM EDTdocumented as of this encounter Care Teams Team MemberRelationshipSpecialtyStart DateEnd Date No [place] [address] PCP - GeneralFabeth [facility] Khzfwjmz97/9/25documented as of this encounter
--- OUTSIDE RECORDS SUMMARY | 2025-03-15 20:59 | XMS_ITS | Encounter Summary ---
Author Organization [facility] Address [address] [place] [address] Care Team Providers Care Horse Farm Manager Name Role Phone Unavailable Primary Care Provider Unavailabl e Encounter Details DateTypeDepartmentCare Team (Latest Contact Info)Zkcleuadcvs86/09/2025External Result Encounter [facility] [address] [place] [address] Saloni Valdez, [address] [facility] [address] [facility] [address] [place], [facility] Social History Tobacco UseTypesPacks/DayYears UsedDateSmoking Tobacco: Never Assessed Estimated Date of FxlpkangZgyzafhzDvy22/11/2026Based on Ultrasound, FHR-122Sex and Gender InformationValueDate RecordedSex Assigned at EkfjnKjojip40/04/2024 2:19 PM EDTLegal JfhErxjtk20/15/2023 7:05 PM EDTGender FnvwtthzShouin54/04/2024 2:19 PM EDTSexual OrientationNot on filedocumented as of this encounter Plan of Treatment DateTypeDepartmentCare Team (Latest Contact Info)Zxdijskoppe03/29/2025 2:20 PM ESTRoutine [facility] [place] [address] [place] [address] Sahra Sellers, KATYA [address] [place] [address] documented as of this encounter Procedures Procedure NamePriorityDate/TimeAssociated DiagnosisCommentsUS OB 14+ WEEKS ANATOMY SCAN03/02/2025 4:30 PM EST documented in this encounter Results * US OB 14+ weeks anatomy scan (03/02/2025 4:30 PM EST)Anatomical Region LateralityModalityBodyUltrasoundSpecimen (Source)Anatomical Location / LateralityCollection Method / VolumeCollection TimeReceived Time03/02/2025 4:30 PM EST Narrative 03/02/2025 4:30 PM EST THIS EXAM WAS PERFORMED AT [facility] NAME: ??KENYA MORATAYA : 1990 SEX: F Accession Number: [id number] ORDERING PHYSICIAN: SALONI VALDEZ REFERRING PHYSICIAN: SALONI VALDEZ Coding Procedures ? 61212: Ultrasound, uterus, real time with image documentation, follow up,transabdominal ? approach per fetus Indication Obesity in , Supervision of high risk (opioid addiction), Known or suspected damage to fetus by drugs, marijuana use in , Smoking in , Anxiety, Depression, Screening for follow-up survey. History OB History ? 1. Para 0 ? [id number] Current Cell free DNA ?Low Risk analysis Maternal Assessment Physical Exam ??Height 165 cm, 5 ft 5 in. Initial weight 131 kg, 289 lb. Initial BMI 48.09 kg/m??? Method Transabdominal ultrasound examination. View: Suboptimal view: [...] (oz) ? 7 oz EFW by: ?Hadlock (QLS-CD-JO-FL) Extended Tibia ??59.2 mm 34w 4d 59% Gallo Bombsight Specialist ? 1.6 mm Head / Face / [...] Heart / Thorax RVOT view. LVOT view. 3-qqzrvh-fwnqnfp view. Situs. Aortic arch view. Bicaval view. [...] for specific concerns or indications. Please see [facility] recommendations from prior clinical and/or ultrasound report documentation. Subsequent follow up or other follow up as clinically determined by primary OB provider unless otherwise specified by [facility]. Results forwarded to ordering provider so they can follow up with the patient as necessary. Procedure Note Radiology, Radiologist, MD - 03/02/2025 THIS EXAM WAS PERFORMED AT [facility] NAME: KENYA MORATAYA : 1990 SEX: F Accession Number: [id number] ORDERING PHYSICIAN: SALONI VALDEZ REFERRING PHYSICIAN: SALONI VALDEZ Coding Procedures 20706: Ultrasound, uterus, real time with image documentation, follow up, transabdominal approach per fetus Indication Obesity in , Supervision of high risk (opioidaddiction), Known or suspected damage to fetus by drugs, marijuana use in , Smoking in , Anxiety, Depression,Screening for follow-up survey. History OB History 1. Para 0 A3F0V5P0 Current Cell free DNA Low Risk analysis Maternal Assessment Physical Exam Height 165 cm, 5 ft 5 in. Initial weight 131 kg, 289 lb.Initial BMI 48.09 kg/m??? Method Transabdominal ultrasound examination. View: Suboptimal view: [...] EFW (oz) 7 oz EFW by: Hadlock (ATQ-EY-XD-FL) Extended Tibia 59.2 mm 34w 4d 59% Gallo Bombsight Specialist 1.6 mm Head / Face / Neck [...] Heart / Thorax RVOT view. LVOT view. 5-uudryd-dfgccgg view. Situs. Aorticarch view. Bicaval view. Ductal [...] for specific concerns or indications. Please see [facility] recommendations from prior clinical and/or ultrasoundreport documentation. Subsequent follow up or other follow up as clinically determined byprimary OB provider unless otherwise specified by [facility]. Results forwarded to ordering provider so they can follow up with thepatient as necessary. Authorizing ProviderResult TypeResult StatusCorey José Miguel AMAYA OB US PROCEDURES Final Result documented in this encounter Visit Diagnoses Not on filedocumented in this encounter
--- OUTSIDE RECORDS SUMMARY | 2025-03-15 20:59 | XMS_ITS | Clinical Summary ---
Author Organization [facility] Address [address] [place] [address] Care Team Providers Care Reactor Technician Name Role Phone Unavailable Primary Care Provider Unavailabl e Allergies Active AllergyReactionsCriticalityNoted BzvfOxfqtaadMsmxjuvavdhZanyZwe54/08/2025 Nttpwotnot19/26/2020 Other Reaction(s): Unknown Pt states she has had multiple symptoms since taking this, feels like she is on fire, feels like she is going to pass out and it caused a yeast infection Syijtmsrmm38/08/2025 Other Reaction(s): Unknown Lczdhynxdq50/08/2025 Other Reaction(s): Unknown Medications MedicationSigDispense QuantityRefillsLast FilledStart DateEnd DateStatus MV-Min-Fe Fum-FA-DHA ( 1 PO) Take 1 tablet by mouth DailyActive promethazine (Phenergan) 12.5 MG tablet Indications:9 weeks gestation of ([facility]),NauseaTake 1 tablet (12.5 mg) by mouth every 6 (six) hours if needed for nausea or vomiting for up to 30 d oses Take 1 tablet by mouth every 6 hours as needed for nausea. 30 tablet 5Active Additional Information Patient not taking.Reported on 12/03/2024 ondansetron ODT (Zofran-ODT) 4 MG disintegrating tablet Take 4 mg by mouth every 8 (eight) hours if needed for nnetgq075Active venlafaxine XR (Effexor XR) 37.5 MG 24 hr capsule Indications:Mood disorderTake 1 capsule (37.5 mg) by mouth Daily Do not crush or chew. 30 capsule 110/ctive promethazine (Phenergan) 12.5 MG tablet Indications:UTI symptomsTake 1 tablet (12.5 mg) by mouth every 6 (six) hours if needed for nausea or vomiting for up to 30 doses Take 1 tablet by mouth every 6 hours as needed for nausea. 30 tablet 5Active Additional Information Patient not taking.Reported on 12/03/2024 Active Problems ProblemNoted DateDiagnosed DateHx of opioid abuse09/29/2024Generalized convulsive ipypljmt79/04/2024Idiopathic progressive ctradqnbwp95/04/2024 Bilateral carpal tunnel /04/2024Estimated Date of Delivery CqjxxkrpFmj04/11/2026ased on Ultrasound, FHR-122 Encounters DateTypeDepartmentCare DcnfYvbabcfbaps86/22/2025 1:20 PM ESTRoutine [facility] [place] [address] [place] [address] Samantha Lira PA 37 weeks gestation of ([facility]); Third trimester ([facility])03/15/2025amboo flowsheet [facility] [address] [place] [address] Samantha Lira PA 03/02/2025External Result Encounter [facility] [address] [place] [address] Saloni Valdez DO 01/18/2025Telephone [facility] [address] [place] [address] Katie Loo MA 01/07/2025Telephone [facility] [address] [place] [address] Saloni Valdez DO from Last 3 Months Family History Medical HistoryRelationNameCommentsDiabetesBrotherHypertensionBrotherHeart diseaseMaternal GrandmotherHeart diseaseMotherMental illnessMotherOsteoporosis MotherHeart diseaseMother's SisterRelationNameStatusCommentsBrotherMaternal GrandmotherMotherMother's Sister Social History Tobacco UseTypesPacks/DayYears UsedDateSmoking Tobacco: Never Assessed Estimated Date of YmjicbgkAfuufgyrFlp37/11/2026ased on Ultrasound, FHR-122Sex and Gender InformationValueDate RecordedSex Assigned at LmxvkEebyeo27/04/2024 2:19 PM EDTLegal KtpWmguaf07/15/2023 7:05 PM EDTGender RndgotltYtpmhy08/04/2024 2:19 PM EDTSexual OrientationNot on file Last Filed Vital Signs Vital SignReadingTime TakenCommentsBlood Mcxwzakw612/8203/15/2025 1:51 PM EST Pulse--Temperature--Respiratory Rate--Oxygen Saturation--Inhaled Oxygen Concentration--Rqvdhf397 kg (280 lb)03/15/2025 1:51 PM SRIVvnosu566.4 cm (5' 5.5 )05/09/2018 12:00 PM ESTBody Mass Index45.8905/09/2018 12:00 PM EST Plan of Treatment DateTypeDepartmentCare Team (Latest Contact Info)Vsvmfvbuwnp34/29/2025 2:20 PM ESTRoutine [facility] [address] [place] [address] Sahra Sellers, SENIOR GAME ADVISOR [address] [facility] [place] [address] Procedures Procedure NamePriorityDate/TimeAssociated DiagnosisCommentsPOCT URINALYSIS CXRVMRVWQoytgjg15/22/2025 1:53 PM EST 37 weeks gestation of ([facility]) Third trimester ([facility]) OB 14+ WEEKS ANATOMY SCAN03/02/2025 4:30 PM EST from Last 3 Months Results * (ABNORMAL) POCT urinalysis dipstick manually resulted (03/15/2025 1:53 PM EST) ComponentValueRef RangeTest MethodAnalysis TimePerformed AtPathologist SignatureColor, UAYellowClarity, UACloudyGlucose, UANegativeNegative - 1999(110) ++++ mg/dLBilirubin, UANegativeNegative - 4(70) +++ mg/dLKetones, UA NegativeNegative - 160(16) ++++ mg/dLSpec Grav, UA1.0301 - 1.03Blood, UA NegativeNegative - 50 Oni/mcLpH, UA6.05 - 9Protein, UA1+Negative - 1999(20) ++++ mg/dLUrobilinogen, UA0.20.2 - 12 mg/dLLeukocytes, UANegativeNegative - 500+++ Kenia/mcLNitrite, UANegativeNegative - PositiveSpecimen (Source) Anatomical Location / LateralityCollection Method / VolumeCollection Time Received EornJhzec34/22/2025 1:53 PM EST Narrative Authorizing ProviderResult TypeResult StatusLake [facility] TEST ENTER/EDIT ORDERABLESFinal Result * US OB 14+ weeks anatomy scan (03/02/2025 4:30 PM EST)Anatomical Region LateralityModalityBodyUltrasoundSpecimen (Source)Anatomical Location / LateralityCollection Method / VolumeCollection TimeReceived Time03/02/2025 4:30 PM EST Narrative 03/02/2025 4:30 PM EST THIS EXAM WAS PERFORMED AT [facility] NAME: ??KENYA MORATAYA : 1990 SEX: F Accession Number: [id number] ORDERING PHYSICIAN: SALONI VALDEZ REFERRING PHYSICIAN: SALONI VALDEZ Coding Procedures ? 56686: Ultrasound, uterus, real time with image documentation, follow up,transabdominal ? approach per fetus Indication Obesity in , Supervision of high risk (opioid addiction), Known or suspected damage to fetus by drugs, marijuana use in , Smoking in , Anxiety, Depression, Screening for follow-up survey. History OB History ? 1. Para 0 ? [id number] Current Cell free DNA ?Low Risk analysis [...] (oz) ? 7 oz EFW by: ?Hadlock (GVS-EB-YA-FL) Extended Tibia ??59.2 mm 34w 4d 59% Gallo Instrument Fitter ? 1.6 mm Head / Face / [...] Heart / Thorax RVOT view. LVOT view. 4-xcuxcb-wcgbddl view. Situs. Aortic arch view. Bicaval view. [...] for specific concerns or indications. Please see [facility] recommendations from prior clinical and/or ultrasound report documentation. Subsequent follow up or other follow up as clinically determined by primary OB provider unless otherwise specified by M. Results forwarded to ordering provider so they can follow up with the patient as necessary. Procedure Note Radiology, Radiologist, - 03/02/2025 THIS EXAM WAS PERFORMED AT [facility] NAME: KENYA MORATAYA : 1990 SEX: F Accession Number: [id number] ORDERING PHYSICIAN: SALONI VALDEZ REFERRING PHYSICIAN: SALONI VALDEZ Coding Procedures 46261: Ultrasound, uterus, real time with image documentation, follow up, transabdominal approach per fetus Indication Obesity in , Supervision of high risk (opioidaddiction), Known or suspected damage to fetus by drugs, marijuana use in , Smoking in , Anxiety, Depression,Screening for follow-up survey. History OB History 1. Para 0 [id number] Current Cell free DNA Low Risk analysis [...] EFW (oz) 7 oz EFW by: Hadlock (VLH-IG-FE-FL) Extended Tibia 59.2 mm 34w 4d 59% Gallo Instrument Fitter 1.6 mm Head / Face / Neck [...] Heart / Thorax RVOT view. LVOT view. 2-cyiiqv-vyttnrw view. Situs. Aorticarch view. Bicaval view. Ductal [...] for specific concerns or indications. Please see [facility] recommendations from prior clinical and/or ultrasoundreport documentation. Subsequent follow up or other follow up as clinically determined byprimary OB provider unless otherwise specified by [facility]. Results forwarded to ordering provider so they can follow up with thepatient as necessary. Authorizing ProviderResult TypeResult StatusCorey José Miguel AMAYA OB US PROCEDURES Final Result from Last 3 Months Insurance
--- OUTSIDE RECORDS SUMMARY | 2025-03-15 20:59 | XMS_ITS | Clinical Summary ---
Author Organization [facility] Address [id number] [address] [place] [address] Care Team Providers Care Criminology Professor Name Role Phone No Pcp, No Pcp Primary Care Provider Unavailabl e Allergies Active AllergyReactionsCriticalityNoted EgmhQxgsskwpZubluethgocBocjMxh78/14/2025 Vydemqkacy37/26/2020 Pt states she has had multiple symptoms since taking this, feels like she is on fire, feels like she is going to pass out and it caused a yeast infection Kuqcoggamr04/14/8412Zdopbgzmbn23/14/2025 Medications * This document contains information received from the source organization and may not represent a complete record from that organization. MedicationSigDispense QuantityRefillsLast FilledStart DateEnd DateStatus BRIXADI 96 mg/0.27 mL solution, extended rel syringe 5Active levETIRAcetam (KEPPRA) 500 mg tablet Oral for 30 Days4Active promethazine (PHENERGAN) 25 mg/mL injection 5Active ix498-mcff-mkyny acid ( 19) 29 mg iron- 1 mg tablet,chewable Chew 1 tablet and swallow in the morning.Active ondansetron (ZOFRAN) 4 mg tablet Take 1 tablet (4 mg total) by mouth every 8 (eight) hours as needed for nausea or vomiting.Active citalopram (CeleXA) 10 mg tablet Take 1 tablet (10 mg total) by mouth in the morning.Active ARIPiprazole lauroxil (ARISTADA) 1,064 mg/3.9 mL suspension,extended rel syring injection Inject 3.9 mL (1,064 mg total) into the appropriate muscle every 60 (sixty) days.Active ARIPiprazole (ABILIFY) 5 mg tablet Take 1 tablet (5 mg total) by mouth in the morning.Active venlafaxine (EFFEXOR) 37.5 mg tablet Take 1 tablet (37.5 mg total) by mouth in the morning and 1 tablet (37.5 mg total) before bedtime.Active Active Problems Patient Care Coordination No te Formatting of this note migh t be different from the original. Ped Echo 01/01 ProblemNoted DateDiagnosed DateHistory of cocaine use4Cannabis-related fsfaquyl46/01/2020Cigarette nicotine dependence with nicotine-induced disorder 05/29/2016PTSD (post-traumatic stress disorder)05/18/2016Panic disorder with agoraphobia and severe panic dgqjslv4805/18/2016Bipolar I disorder, most recent episode bmydsjfbq23/24/2017GERD (gastroesophageal reflux disease)03/26/2016 Wmlijw0803/26/20160607Njjjvvpkrxzf73/02/2017Preoperative evaluation to rule out surgical contraindicationAbnormal EKGEstimated Date of DeliveryComments Yes04/04/2025ased on Ultrasound Resolved Problems ProblemNoted DateDiagnosed DateResolved DatePre-op qyalmsyhim37/27/2020 4Abnormal EKG1Bipolar disorder, unspecified 4Bipolar disorder, ivvlnulezoh78Bipolar disorder current episode ojiyuuyvb12/24/Cannabis abuse05/18/2016 07/16/2016Tobacco use zmygelgz124Bipolar disorder, unspecified Encounters DateTypeDepartmentCare GzpwKaatolglfkv15/09/2025 1:51 PM EST - 03/02/2025 11:59 PM ESTHospital Encounter [facility]ound [address] [place] [address] Fibromyalgia; Cigarette nicotine dependence with nicotine-induced disorder; History of cocaine use; BMI 45.0-49.9, adult ([facility]-H[facility]); Encounter for follow-up ultrasound of anatomy Discharge Disposition: Home03/02/20257983Lbplzv61/23/2025Orders Only [facility] Certified Nurse Fountain Operator - [place] [id number] [phone] Brenda Mcknight RN Fibromyalgia (Primary Dx); Cigarette nicotine dependence with nicotine-induced disorder; History of cocaine use; BMI 45.0-49.9, adult ([facility]); Encounter for follow-up ultrasound of ufufbwq0401/14/20250204Kycxap43/07/2025 Travelfrom Last 3 Months Family History Medical HistoryRelationNameCommentsAlcohol abuseBrotherBipolar disorderBrother DiabetesBrotherHypertensionBrotherAlcohol abuseFatherAlcohol abuseMaternal GrandfatherAlcohol abuseMaternal GrandmotherHeart diseaseMaternal Grandmother Alcohol abuseMotherBipolar disorderMotherDepressionMotherHeart diseaseMother Heart diseasePaternal AuntRelationNameStatusCommentsBrotherFatherMaternal GrandfatherMaternal GrandmotherMotherPaternal Aunt Social History Tobacco UseTypesPacks/DayYears UsedDateSmoking Tobacco: Every DayCigarettes0.516 Started: 03/25/2009Smokeless Tobacco: Never Tobacco Cessation:Ready to Q uit: Not Asked; Counseling Given: Not Answered Alcohol UseStandard Drinks/WeekCommentsNot Currently0 (1 standard drink = 0.6 oz pure alcohol)been sober almost a yearPHQ-2AnswerDate RecordedTotal Score0 5ChildcareAnswerDate HzewgbccVuwwjvcmeRmfnyge03/12/2019EmploymentAnswer Date ZprzrcdrPrxrfwpjjuJljqxzt49/12/2019Hunger ScreeningAnswerDate Recorded Within the past 12 months we worried whether our food would run out before we got money to buy more.Never True11/16/2024Within the past 12 months the food we bought just didn't last and we didn't have money to get more.Never True 11/16/2024Purpose - LifeAnswerDate RecordedPurpose and direction in lifeUnknown 1Estimated Date of KbctqmudBgwalovaTzq77/11/2026Based on UltrasoundSex and Gender InformationValueDate RecordedSex Assigned at BirthNot on fileLegal UxhVnnlzk77/06/2015 11:47 AM EDTGender IdentityNot on fileSexual OrientationNot on file Last Filed Vital Signs Vital SignReadingTime TakenCommentsBlood Kpimwrsk747/7708 1:49 PM EDT Wtucj180111/16/2024 1:49 PM CWDIcakocuitbe63.1 ??C (98.7 ??F)09/09/2024 3:45 PM EDTRespiratory Tmte334409/09/2024 3:45 PM EDTOxygen Ayydciasuj48%09/09/2024 3:45 PM EDTInhaled Oxygen Concentration--Fuskpf318.2 kg (280 lb 6.4 oz)11/16/2024 1:49 PM AFDNfqdzx693.1 cm (5' 5 )11/16/2024 1:49 PM EDTBody Mass Index46.66 11/16/2024 1:49 PM EDT Plan of Treatment Health MaintenanceDue DateLast DoneCommentsTobacco Ghasfyqoir80/06/1993Pap Smear 2013DTaP,Tdap and Td Vaccines (7 - Td or Tdap), 06/04/1997, 12/27/1993, Additional history existsInfluenza Zhyqunw1611/23/2024 06/25/2019, 01/06/2010RSV ( or age 60+ yrs) (1 - Risk 1-dose series)02/07/2025du BMI Follow Up Plan/Depression Irorubrfg18/dult BMI Clqmbswss05Tobacco Dvyqzrzcb85 Medical Devices ImplantedTypeAreaManufacturerDevice IdentifierShelf Expiration DateModel / Serial / LotMesh Pco Vntrl Ptch 6.6cm Rpl [id number] - Sna - [id number] Implanted:Qty: 1 on 11/27/2019 by Sean Wilson [facility]ENTERTMeshN/A: AbdomenMEDTRONIC [id number] / NA / [id number] Procedures Procedure NamePriorityDate/TimeAssociated DiagnosisCommentsUS MFM OB FOLLOW-UP, 1 ZVTAPMdscwud46/09/2025 2:47 PM EST Fibromyalgia Cigarette nicotine dependence with nicotine-induced disorder History of cocaine use BMI 45.0-49.9, adult ([facility]) Encounter for follow-up ultrasound of anatomy US MFM OB FOLLOW-UP, 1 XMRPZYzquyjq35/23/2025 9:02 AM EDT Maternal seizure disorder during in second trimester ([facility]) History of substance use from Last 3 Months Results * US MFM OB FOLLOW-UP, 1 FETUS (03/02/2025 2:47 PM EST) Only the most recent of2 resultswithin the time period is included. Anatomical RegionLateralityModalityOB-GYNUltrasoundSpecimen (Source)Anatomical Location / LateralityCollection Method / VolumeCollection TimeReceived Time 03/02/2025 2:14 PM EST Narrative 03/02/2025 4:30 PM EST NAME: ??KENYA MORATAYA : 1990 SEX: F Accession Number: [id number] ORDERING PHYSICIAN: SALONI VALDEZ REFERRING PHYSICIAN: SALONI VALDEZ Coding Procedures ? 54676: Ultrasound, uterus, real time with image documentation, follow up,transabdominal ? approach per fetus Indication Obesity in , Supervision of high risk (opioid addiction), Known or suspected damage to fetus by drugs, marijuana use in , Smoking in , Anxiety, Depression, Screening for follow-up survey. History OB History ? 1. Para 0 ? X5X8X5I6 Current Cell free DNA ?Low Risk analysis [...] (oz) ? 7 oz EFW by: ?Hadlock (GRB-XQ-FY-FL) Extended Tibia ??59.2 mm 34w 4d 59% Gallo Taxicab Starter ? 1.6 mm Head / Face / [...] Heart / Thorax RVOT view. LVOT view. 0-oipeoc-xuswwbc view. Situs. Aortic arch view. Bicaval view. [...] for specific concerns or indications. Please see [facility] recommendations from prior clinical and/or ultrasound report documentation. Subsequent follow up or other follow up as clinically determined by primary OB provider unless otherwise specified by MFM. Results forwarded to ordering provider so they can follow up with the patient as necessary. Procedure Note William John MD - 03/02/2025 NAME: KENYA MORATAYA : 1990 SEX: F Accession Number: [id number] ORDERING PHYSICIAN: SALONI VALDEZ REFERRING PHYSICIAN: SALONI VALDEZ Coding Procedures 11464: Ultrasound, uterus, real time with image documentation, follow up, transabdominal approach per fetus Indication Obesity in , Supervision of high risk (opioidaddiction), Known or suspected damage to fetus by drugs, marijuana use in , Smoking in , Anxiety, Depression,Screening for follow-up survey. History OB History 1. Para 0 E1T5V6F0 Current Cell free DNA Low Risk analysis [...] EFW (oz) 7 oz EFW by: Hadlock (RCJ-CV-AV-FL) Extended Tibia 59.2 mm 34w 4d 59% Gallo Taxicab Starter 1.6 mm Head / Face / Neck [...] Heart / Thorax RVOT view. LVOT view. 7-koeapr-tqupqdh view. Situs. Aorticarch view. Bicaval view. Ductal [...] for specific concerns or indications. Please see [facility] recommendations from prior clinical and/or ultrasoundreport documentation. Subsequent follow up or other follow up as clinically determined byprimary OB provider unless otherwise specified by [facility]. Results forwarded to ordering provider so they can follow up with thepatient as necessary. Authorizing ProviderResult TypeResult StatusCorey Freddie Valdez DOI US ORDERABLES Final Result from Last 3 Months Insurance Advance Directives TypeDate RecordedPatient RepresentativeExplanationAdvance Directive11/19/2019 3:04 PMAD 11/19/2019 * Full Code (Latest Code Status on File) Date ActivatedDate InactivatedComments07/16/2016 3:03 PM07/26/2016 6:13 PM * Full Code Date ActivatedDate InactivatedComments03/26/2016 2:55 PM03/29/2016 2:43 PM * Full Code Date ActivatedDate GthontdkogaHbaerjdg73/17/2016 1:46 PM02/13/2016 5:24 PM Care Teams Team MemberRelationshipSpecialtyStart DateEnd Date [place], [place] [address] [facility] Kuapiegk16/9/25
--- OUTSIDE RECORDS SUMMARY | 2025-03-15 20:59 | XMS_ITS | Encounter Summary ---
Author Organization [facility] Address [address] [place] [address] Care Team Providers Care Imaging Aide Name Role Phone Unavailable Primary Care Provider Unavailabl e Encounter Details DateTypeDepartmentCare Team (Latest Contact Info)Dacztetbmiy43/22/2025amboo flowsheet [facility] [address] [place] [address] Samantha Lira PA [address] [place], [facility] Social History Tobacco UseTypesPacks/DayYears UsedDateSmoking Tobacco: Never Assessed Estimated Date of UmurhyxnLwrwtdpeNvf41/11/2026Based on Ultrasound, FHR-122Sex and Gender InformationValueDate RecordedSex Assigned at ObvaxEpfsqe25/04/2024 2:19 PM EDTLegal LhzWmhhle32/15/2023 7:05 PM EDTGender JgjzkjhzDybuxm40/04/2024 2:19 PM EDTSexual OrientationNot on filedocumented as of this encounter Plan of Treatment DateTypeDepartmentCare Team (Latest Contact Info)Zuhbaruolwx44/29/2025 2:20 PM ESTRoutine [facility] [address] [place] [address] [place] [address] Sahra Sellers, BUSINESS REPORTING DEVELOPER [address] [place] [address] documented as of this encounter Visit Diagnoses Not on filedocumented in this encounter
--- OUTSIDE RECORDS SUMMARY | 2025-03-15 20:59 | XMS_ITS ---
Author Organization [facility] c[facility] (ClinicalSummary Clone) Address Unknown Care Team Providers Care White Spooler Name Role Phone Unavailable Primary Care Physician Unavailab le Results * [UNITY] ANEUPLOIDY NIPT Performed by: [employer] Component Value Range Date Fraction 5.1% 09/07/2024 02:20 am UTCRh(D) NIPTRhD RUXTCWJU23/16/2025 02:20 am UTCSex Chromosome AneuploidyNOT PXOAEWKD39/16/2025 02:20 am UTCMonosomy XLOW RISK <1 in , 02:20 am UTCTrisomy 13LOW RISK <1 in , 02:20 am UTCTrisomy 18LOW RISK <1 in , 02:20 am UTCTrisomy 21LOW RISK <1 in , 02:20 am UTCFetal AhyXRIFJF99/16/2025 02:20 am UTCPregnancy DxdhvwgxhCTKUCQERB87/16/2025 02:20 am UTCFor detailed report, see PDFSee PDF 09/07/2024 02:20 am UTC09/07/2024 02:20 am UTC Social History Observation Value Start Date End Date
--- OUTSIDE RECORDS SUMMARY | 2025-03-15 20:59 | XMS_ITS ---
Author Organization [facility] Source Produ ction (ClinicalSummary Clone) Address Unknown Care Team Providers Care Investment Sales Assistant Name Role Phone Unavailable Primary Care Physician Unavailab le Results * [UNITY] CARRIER SCREEN Performed by: [employer] Component Value Range Date Sickle Cell Disease/Beta-Thalassemia/Hemoglobino pathies carrier screen NEGATIVE 09/10/2024 04:17 am UTCAlpha-Thalassemia carrier fuhfszNIMMCAFO98/19/2025 04:17 am UTCCystic Fibrosis carrier lfcdblNSMHPGBT02/19/2025 04:17 am UTCSpinal Muscular Atrophy carrier screenNEGATIVE 2 SMN1 copies, SNP not uydwudb5809/10/2024 04:17 am UTCFor detailed report, see PDFSee PDF09/10/2024 04:17 am UTC 09/10/2024 04:17 am UTC Social History Observation Value Start Date End Date
== END 2025-03-15 20:56 | disposition home or self-care (01) ==
LOC: LAB 20:55
PROVIDERS: PCP Obstetrics & Gynecology; Visit Provider Obstetrics & Gynecology
DX: Z34.93 Encounter for supervision of normal pregnancy, unspecified, third trimester (principal); Z3A.37 37 weeks gestation of pregnancy
CPT/HCPCS: 87081